=== PATIENT | male | born 1980 ===

== ENCOUNTER 2016-11-18 14:09 | Inpatient (IN) | payer BC ==
[2016-11-18] MEDS ORDERED: Sodium Chloride 0.9% 1,000 ML IV STA ×2 (14:35→17:45)
--- NOTE | 2016-11-18 14:35 | ED PDOC ---
HPI: Abdomen Time Seen by Provider: 11/18/16 14:22 Chief Complaint (Nursing): Abdominal Pain Chief Complaint (Provider): Abdominal Pain History Per: Patient History/Exam Limitations: no limitations Onset/Duration Of Symptoms: Hrs Current Symptoms Are (Timing): Still Present Severity: Severe Location Of Pain/Discomfort: Diffuse, Epigastric Quality Of Discomfort: Cramping, "Pain" Associated Symptoms: Fever, Chills. denies: Nausea, Vomiting Exacerbating Factors: Movement Alleviating Factors: Other (standing) Additional Complaint(s): Patient is a 35 year old male who presents to ED for evaluation of severe abdominal pain that began at 10am today, Patient states pain has worsened since than with posterior right shoulder pain. Notes fever and chills last night which were resolved with Tylenol. Patient denies similar pain in the past. Patient also reporting mild SOB secondary to pain. Denies nausea, vomiting or diarrhea, notes no BM today, last meal was breakfast at 0800. Past Medical History Reviewed: Historical Data, Nursing Documentation, Vital Signs Vital Signs: Last Vital Signs Temp 98.5 F 11/21/16 16:46 Pulse 119 H 11/21/16 17:00 Resp 24 11/21/16 16:46 BP 97/53 L 11/21/16 17:00 Pulse Ox 100 11/21/16 17:00 - Medical History PMH: No Chronic Diseases - Surgical History Surgical History: No Surg Hx - Family History Family History: States: No Known Family Hx - Living Arrangements Living Arrangements: With Family - Social History Current smoker - smoking cessation education provided: No Alcohol: Occasional Drugs: Denies - Allergies Allergies/Adverse Reactions: Allergies Allergy/AdvReac Type Severity Reaction Status Date / Time No Known Allergies Allergy Verified 11/18/16 14:12 Review of Systems ROS Statement: Except As Marked, All Systems Reviewed And Found Negative Constitutional: Positive for: Fever, Chills Gastrointestinal: Positive for: Abdominal Pain. Negative for: Nausea, Vomiting , Diarrhea, Constipation Genitourinary Male: Negative for: Dysuria, Hematuria Musculoskeletal: Positive for: Shoulder Pain, Back Pain Neurological: Negative for: Weakness, Numbness Physical Exam - Reviewed Nursing Documentation Reviewed: Yes Vital Signs Reviewed: Yes - Physical Exam Appears: Positive for: Non-toxic, In Acute Distress (moderate-severe painful distress) Skin: Positive for: Normal Color, Warm Eye Exam: Positive for: Normal appearance, PERRL Neck: Positive for: Normal, Painless ROM Cardiovascular/Chest: Positive for: Regular Rate, Rhythm, Tachycardia. Negative for: Murmur Respiratory: Positive for: Normal Breath Sounds. Negative for: Respiratory Distress Gastrointestinal/Abdominal: Positive for: Bowel Sounds (active ), Tenderness ( tense diffusely ), Guarding. Negative for: Distended Back: Positive for: Normal Inspection. Negative for: L CVA Tenderness, R CVA Tenderness Extremity: Positive for: Normal ROM Neurologic/Psych: Positive for: Alert, Oriented - Laboratory Results Result Diagrams: 11/21/16 04:55 11/21/16 07:30 - ECG O2 Sat by Pulse Oximetry: 98 (RA) Pulse Ox Interpretation: Normal - Critical Care Total Time (In Min): 30 Documented Critical Care: Time excludes all time spent performint seperately billable procedures Medical Decision Making Medical Decision Making: Time: 1430 Initial impression: Abdominal pain, hypoxia Ddx include but not limitied to cholelithiasis, cholecytitis, pancreatitis, enteritis, PUD, sepsis, pneumonia Initial plan: -- CMP -- Lact acid -- LDH -- Lipase -- CBC -- Pt/PTT -- NSF and Morphine -- Blood culture -- U/S Accession No. : [id number] Patient Name / ID : KIERA OBRIEN / [id number] Exam Date : 11/18/2016 14:50:51 ( Approved ) Study Comment : Sex / Age : M / 35Y Creator : Radha Helm MD Dictator : Radha Helm MD Orthopedic Tech : Expert Medical Writer : Radha Helm MD Approver2 : Report Date : 11/18/2016 15:27:11 My Comment : HISTORY: abd pain r/o cholelithiasis COMPARISON: None available TECHNIQUE: Sonographic evaluation of the abdomen. FINDINGS: Examination markedly limited due to patient condition and difficulty with breath hold. LIVER: Measures 14.2 cm in sagittal dimension and appears within normal limits of size , shape, and echotexture. No focal hepatic mass identified. The main portal vein appears patent with normal directional flow. No intrahepatic bile duct dilatation. GALLBLADDER: No gallstones. No gallbladder wall thickening. Negative sonographic Vásquez's sign as assessed by the air sampler. COMMON BILE DUCT: Measures 2 mm. PANCREAS: Not well visualized. RIGHT KIDNEY: Measures 8.8 x 4.0 x 4.8cm. No no obstructing calculus or hydronephrosis identified. LEFT KIDNEY: Measures 9.0 x 5.3 x 4.5cm. No obstructing calculus or hydronephrosis identified. SPLEEN: Measures approximately 11.1 x 5.7 x 4.0 cm. 1.1 cm probable splenule. AORTA: Not well-visualized. IVC: Not well-visualized. OTHER FINDINGS: Right-sided pleural effusion. IMPRESSION: Limited study. Right-sided pleural effusion. 1545p Pleural effusion on US. CXR also demonstrates pleural effusion. On discussion, pt denies any chest pain or coughing. Still in pain despite morphine. CT abd/pelvis ordered. WBC minimally elevated. But lactic acid elevated. Pt will need hospitalization for Pleural effusion and sepsis and intractable abdominal pain, pending ER workup. Accession No. : [id number] Patient Name / ID : KIERA OBRIEN / [id number] Exam Date : 11/18/2016 16:25:48 ( Approved ) Study Comment : Sex / Age : M / 35Y Creator : Tremaine Vasques MD Dictator : Tremaine Vasques MD Orthopedic Tech : Expert Medical Writer : Tremiane Vasques MD Approver2 : Report Date : 11/18/2016 17:23:20 My Comment : PROCEDURE: CT Abdomen and pelvis dated 11/18/2016. HISTORY: Severe epigastric pain. Right pleural effusion. COMPARISON: None. TECHNIQUE: Contiguous axial images of the abdomen and pelvis performed in standard fashion following intravenous injection of approximately 95 cc Omnipaque 300 contrast material. The. No IV contrast given. Coronal and Sagittal reformats generated. Radiation dose: Total exam DLP = 497.13 mGy-cm. FINDINGS: LOWER THORAX: Right lower lobe consolidation which may represent some combination of atelectasis/ infiltrate. Small right-sided effusion present. Minor passive atelectasis seen in the left posterior sulcus. Small hiatal hernia which appears to contain some fluid. Findings could represent some sequela of reflux or dysmotility. LIVER: The liver is upper limits of normal measuring nearly 18 cm in CC dimension. Mild diffuse fatty hepatic infiltration. No obvious hepatic mass or collection. Portal and splenic veins are opacified. GALLBLADDER AND BILE DUCTS: Gallbladder is physiologically distended. No evidence of intraluminal gallbladder calculi PANCREAS: Visualized portions of the pancreas unremarkable. No obvious pancreatic mass collection or calcification. No significant pancreatic ductal dilatation. . SPLEEN: Normal size and attenuation pattern. No evidence of splenic mass collection or calcification. . . ADRENALS: No adrenal lesions. KIDNEYS AND URETERS: Kidneys exhibit symmetric nephrograms. No evidence of nephrolithiasis or hydronephrosis. BLADDER: Urinary bladder is markedly distended. No evidence of intraluminal urinary bladder calculi. REPRODUCTIVE: Prostate gland measures approximately 4.4 cm in transverse dimension. Prostatic calcifications are present. APPENDIX: What is felt to represent a normal appendix best seen on axial images numbers 130- 144. No periappendiceal inflammatory changes. BOWEL: Evaluation of the bowel is limited due to the lack of oral contrast material. The stomach is relatively under distended which presumably accounts for thick- walled appearance. The possibility of a gastritis not excluded. Clinical correlation recommended. . There is the distended loop of proximal small bowel left upper quadrant of the abdomen which is nonspecific. This could represent a moderate localized ileus. Large amount of stool is seen throughout the colon particularly the cecum consistent with fecal retention/constipation. PERITONEUM: No evidence of free intraperitoneal air. No free or loculated fluid collections. LYMPH NODES: Unremarkable. No enlarged lymph nodes. VASCULATURE: Unremarkable. No aortic aneurysm. BONES: The osseous structures appear grossly intact. OTHER FINDINGS: None. IMPRESSION: Right lower lobe consolidation which may represent atelectasis/infiltrate. There is a small right-sided effusion as well. Suspect small bowel ileus left upper quadrant of the abdomen. . Findings consistent with constipation. Stomach is incompletely distended which presumably accounts for thick-walled appearance. Rule out gastritis. Mild fatty hepatic infiltration with borderline hepatomegaly. CT redemonstrates effusion and also consolidation. CT chest ordered. IV antibiotics ordered for both GI and CAP coverage. Pt still in pain with hypoxia. +Bandemia [address] Combs, CT chest with bilateral pneumonia. No signs of infarction of lung (discussed possibility of PE). TROY [facility]. TROY Amado Hospitalist for ICU. Scribe Attestation: Documented by Ashley Duff acting as a scribe for Rut Canada MD MD Scribe Attestation: All medical record entries made by the Scribe were at my direction and personally dictated by me. I have reviewed the chart and agree that the record accurately reflects my personal performance of the history, physical exam, medical decision making, and the department course for this patient. I have also personally directed, reviewed, and agree with the discharge instructions and disposition. Disposition - Clinical Impression Clinical Impression: Abdominal pain, Pleural effusion, Sepsis, Bilateral pneumonia Counseled Patient/Family Regarding: Studies Performed, Diagnosis - Disposition Disposition Time: 16:00 Condition: CRITICAL - Pt Status Changed To: Hospital Disposition Of: Inpatient - Admit Certification Admit to Inpatient:: After my assessment, the patient will require hospitalization for at least two midnights. This is because of the severity of symptoms shown, intensity of services needed, and/or the medical risk in this patient being treated as an outpatient. - POA Present On Arrival: None
--- NOTE | 2016-11-18 15:28 | US ---
HISTORY: abd pain r/o cholelithiasis COMPARISON: None available TECHNIQUE: Sonographic evaluation of the abdomen. FINDINGS: Examination markedly limited due to patient condition and difficulty with breath hold. LIVER: Measures 14.2 cm in sagittal dimension and appears within normal limits of size, shape, and echotexture. No focal hepatic mass identified. The main portal vein appears patent with normal directional flow. No intrahepatic bile duct dilatation. GALLBLADDER: No gallstones. No gallbladder wall thickening. Negative sonographic Vásquez's sign as assessed by the chucking and boring machine operator. COMMON BILE DUCT: Measures 2 mm. PANCREAS: Not well visualized. RIGHT KIDNEY: Measures 8.8 x 4.0 x 4.8cm. No no obstructing calculus or hydronephrosis identified. LEFT KIDNEY: Measures 9.0 x 5.3 x 4.5cm. No obstructing calculus or hydronephrosis identified. SPLEEN: Measures approximately 11.1 x 5.7 x 4.0 cm. 1.1 cm probable splenule. AORTA: Not well-visualized. IVC: Not well-visualized. OTHER FINDINGS: Right-sided pleural effusion. IMPRESSION: Limited study. Right-sided pleural effusion.
[2016-11-18 15:48] LABS: ALB/GLOB RATIO 1.2 (1.0-2.1); ALKALINE PHOSPHATASE 57 U/L (38-126); ALT/SGPT 26 U/L (21-72); AST/SGOT 34 U/L (17-59); BILIRUBIN,TOTAL 0.7 mg/dl (0.2-1.3); BLOOD UREA NITROGEN 20 mg/dl (9-20); CALCIUM 8.6 mg/dL (8.4-10.2); CARBON DIOXIDE 24 mmol/L (22-30); CHLORIDE 99 mmol/L (98-107); GFR AFRICAN-AMERICAN > 60; GLUCOSE,RANDOM 139 mg/dL (75-110); LIPASE 19 U/L (23-300); POTASSIUM 3.9 MMOL/L (3.6-5.0); SODIUM 141 mmol/l (132-148); TOTAL PROTEIN 7.8 G/DL (6.3-8.2)
[2016-11-18 15:52] LABS: PARTIAL THROMBOPLASTIN TIME 34.3 SECONDS (23.3-32.5)
[2016-11-18 15:59] LABS: BASO % 0.1 % (0.0-2.0); LYMPH # 0.3 K/uL (1.0-4.3); LYMPH % 2.3 % (20.0-40.0); MEAN CELL VOLUME 93.3 fl (80.0-94.0); MEAN CORPUSCULAR HEMOGLOBIN 31.4 pg (27.0-31.0); MEAN CORPUSCULAR HGB CONC 33.7 g/dL (33.0-37.0); MEAN PLATELET VOLUME 9.4 fl (7.2-11.7); MONO # 0.7 K/uL (0.0-0.8); MONO % 5.8 % (0.0-10.0); NEUT # 10.3 K/uL (1.8-7.0); NEUT % 91.8 % (50.0-75.0); NRBC % 0.1 % (0.0-0.0); PLATELET COUNT 169 K/uL (130-400); RED CELL DISTRIBUTION WIDTH 13.3 % (11.5-14.5); WHITE BLOOD COUNT 11.2 K/uL (4.8-10.8)
[2016-11-18] MEDS ORDERED: Iohexol 300 100 ML IJ ONE (16:14)
[2016-11-18] MEDS ORDERED: Sodium Chloride 0.9% 50 ML IV ONE (16:14)
[2016-11-18] MEDS ORDERED: Piperacillin/Tazobact 3.375 GM in Sodium Chloride 0.9% 100 ML IV STA (16:20)
--- NOTE | 2016-11-18 16:25 | RAD ---
HISTORY: RIGHT pleural effusion COMPARISON: No prior study available for comparison TECHNIQUE: Chest PA and lateral FINDINGS: LUNGS: Right basilar opacification likely representing some combination of atelectasis and or infiltrate with moderate-sized effusion. Questionable minimal left basilar atelectasis PLEURA: No significant pleural effusion identified. No pneumothorax apparent. CARDIOVASCULAR: Normal. OSSEOUS STRUCTURES: No significant abnormalities. VISUALIZED UPPER ABDOMEN: Normal. OTHER FINDINGS: None. IMPRESSION: Right basilar opacity likely representing some combination of atelectasis and/or infiltrate with effusion. . Questionable minimal left basilar atelectasis
--- NOTE | 2016-11-18 17:25 | CT ---
PROCEDURE: CT Abdomen and pelvis dated 11/18/2016. HISTORY: Severe epigastric pain. Right pleural effusion. COMPARISON: None. TECHNIQUE: Contiguous axial images of the abdomen and pelvis performed in standard fashion following intravenous injection of approximately 95 cc Omnipaque 300 contrast material. The. No IV contrast given. Coronal and Sagittal reformats generated. Radiation dose: Total exam DLP = 497.13 mGy-cm. FINDINGS: LOWER THORAX: Right lower lobe consolidation which may represent some combination of atelectasis/ infiltrate. Small right-sided effusion present. Minor passive atelectasis seen in the left posterior sulcus. Small hiatal hernia which appears to contain some fluid. Findings could represent some sequela of reflux or dysmotility. LIVER: The liver is upper limits of normal measuring nearly 18 cm in CC dimension. Mild diffuse fatty hepatic infiltration. No obvious hepatic mass or collection. Portal and splenic veins are opacified. GALLBLADDER AND BILE DUCTS: Gallbladder is physiologically distended. No evidence of intraluminal gallbladder calculi PANCREAS: Visualized portions of the pancreas unremarkable. No obvious pancreatic mass collection or calcification. No significant pancreatic ductal dilatation. . SPLEEN: Normal size and attenuation pattern. No evidence of splenic mass collection or calcification. . . ADRENALS: No adrenal lesions. KIDNEYS AND URETERS: Kidneys exhibit symmetric nephrograms. No evidence of nephrolithiasis or hydronephrosis. BLADDER: Urinary bladder is markedly distended. No evidence of intraluminal urinary bladder calculi. REPRODUCTIVE: Prostate gland measures approximately 4.4 cm in transverse dimension. Prostatic calcifications are present. APPENDIX: What is felt to represent a normal appendix best seen on axial images numbers 130- 144. No periappendiceal inflammatory changes. BOWEL: Evaluation of the bowel is limited due to the lack of oral contrast material. The stomach is relatively under distended which presumably accounts for thick-walled appearance. The possibility of a gastritis not excluded. Clinical correlation recommended. . There is the distended loop of proximal small bowel left upper quadrant of the abdomen which is nonspecific. This could represent a moderate localized ileus. Large amount of stool is seen throughout the colon particularly the cecum consistent with fecal retention/constipation. PERITONEUM: No evidence of free intraperitoneal air. No free or loculated fluid collections. LYMPH NODES: Unremarkable. No enlarged lymph nodes. VASCULATURE: Unremarkable. No aortic aneurysm. BONES: The osseous structures appear grossly intact. OTHER FINDINGS: None. IMPRESSION: Right lower lobe consolidation which may represent atelectasis/infiltrate. There is a small right-sided effusion as well. Suspect small bowel ileus left upper quadrant of the abdomen. . Findings consistent with constipation. Stomach is incompletely distended which presumably accounts for thick-walled appearance. Rule out gastritis. Mild fatty hepatic infiltration with borderline hepatomegaly.
[2016-11-18] MEDS ORDERED: HYDROmorphone 0.5 mg/0.5 ml ISec IVP STA (17:48)
[2016-11-18] MEDS ORDERED: Piperacillin/Tazobact 3.375 gm Inj IVPB ONE (18:09)
[2016-11-18 18:24] LABS: ABG ALLEN TEST YES; ARTERIAL BLOOD GAS HCO3 22.8 mmol/L (21-28); ARTERIAL BLOOD GAS PH 7.31 (7.35-7.45); ARTERIAL BLOOD GAS PO2 50 mm/Hg (80-100)
[2016-11-18 18:56] LABS: TOTAL CELLS COUNTED 100
[2016-11-18 18:58] LABS: EOSINOPHIL 1 % (0-7); NEUTROPHIL 43 % (42-75)
[2016-11-18 19:00] LABS: PLATELET CLUMPS PRESENT
[2016-11-18 19:09] LABS: METAMYELOCYTE 4 % (0-0)
--- NOTE | 2016-11-18 20:25 | CP.PCM.CON ---
History of Present Illness - History of Present Illness History of Present Illness: Attending: Rohan Hoffman MD Reason For Consult: Critical care Management Chief Complaint: Abdominal Pain HPI: 35 years old male with no significant past medical hx comes with a one day hx of sudden unset of sharp pain across the middle of the abdomen while he was driving. This was continuous, increasing in intensity with respiration and exertion,associated with SOB. None radiating and not associated with nausea, vomits, Coughing, diarrhea, constipation, urinary symptoms. He referred cold like symptoms with nasal congestion, coughing, fever and chills, on the night prior to this admission. 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 absent: Anorexia, Fever, Headache, Malaise, Weakness - EENT Eyes: absent: Blind Spots, Floaters, Photophobia, Requires Corrective Lenses, Sees Flashes Ears: absent: Decreased Hearing, Ear Discharge, Ear Pain, Tinnitus Nose/Mouth/Throat: absent: Epistaxis, Nasal Congestion, Nasal Discharge, Sore Throat - Cardiovascular Cardiovascular: Dyspnea, Orthopnea. absent: Chest Pain, Palpitations, Pedal Edema - Respiratory Respiratory: absent: Cough, Dyspnea, Wheezing - Gastrointestinal Gastrointestinal: absent: Constipation, Diarrhea, Nausea, Vomiting - Genitourinary Genitourinary: absent: Dysuria, Flank Pain, Hematuria, Urinary Frequency - Musculoskeletal Musculoskeletal: absent: Arthralgias, Back Pain, Joint Swelling, Muscle Weakness , Myalgias, Neck Pain - Integumentary Integumentary: absent: Pruritus, Rash, Skin Ulcer, Sores, Striae, Swelling - Neurological Neurological: absent: Confusion, Dizziness, Headaches, Memory Loss, Weakness - Psychiatric Psychiatric: absent: Anxiety, Depression, Memory Loss, Panic Attacks - Endocrine Endocrine: absent: Palpitations, Polydipsia, Polyphagia, Polyuria - Hematologic/Lymphatic Hematologic: absent: Easy Bleeding, Easy Bruising Past Patient History - Past Medical History & Family History Past Medical History?: No - Past Social History Smoking Status: Never Smoked Chewing Tobacco Use: No Cigar Use: No Alcohol: Social Drugs: Denies Home Situation {Lives}: With Family - CARDIAC Hx Cardiac Disorders: No - PULMONARY Hx Respiratory Disorders: No - NEUROLOGICAL Hx Neurological Disorder: No - HEENT Hx HEENT Problems: No - RENAL Hx Chronic Kidney Disease: No - ENDOCRINE/METABOLIC Hx Endocrine Disorders: No - HEMATOLOGICAL/ONCOLOGICAL Hx Blood Disorders: No - INTEGUMENTARY Hx Dermatological Problems: No - MUSCULOSKELETAL/RHEUMATOLOGICAL Hx Musculoskeletal Disorders: No - GASTROINTESTINAL Hx Gastrointestinal Disorders: No - GENITOURINARY/GYNECOLOGICAL Hx Genitourinary Disorders: No - PSYCHIATRIC Hx Psychophysiologic Disorder: No Hx Substance Use: No - SURGICAL HISTORY Hx Surgeries: No - ANESTHESIA Hx Anesthesia: No Meds Allergies/Adverse Reactions: Allergies Allergy/AdvReac Type Severity Reaction Status Date / Time No Known Allergies Allergy Verified 11/18/16 14:12 Physical Exam - Constitutional Appears: No Acute Distress - Head Exam Head Exam: ATRAUMATIC, NORMAL INSPECTION, NORMOCEPHALIC - Eye Exam Eye Exam: EOMI, Normal appearance Pupil Exam: NORMAL ACCOMODATION, PERRL - ENT Exam ENT Exam: Mucous Membranes Moist, Normal Exam, Normal External Ear Exam, Normal Oropharynx - Neck Exam Neck exam: Positive for: Full Rom, Normal Inspection. Negative for: Lymphadenopathy, Tenderness - Respiratory Exam Respiratory Exam: absent: Rales, Rhonchi, Wheezes Additional comments: Decreased breath sounds at the right lung distal half. - Cardiovascular Exam Cardiovascular Exam: REGULAR RHYTHM, RRR, +S1, +S2. absent: Gallop, JVD - GI/Abdominal Exam Additional comments: Guarding, no rebound tenderness, Tender at the periumbilical region, decreased bowel sounds. - Rectal Exam Rectal Exam: Deferred - Extremities Exam Extremities exam: Positive for: full ROM, normal inspection. Negative for: calf tenderness, pedal edema, pedal pulses present - Back Exam Back exam: NORMAL INSPECTION. absent: CVA tenderness (L), CVA tenderness (R) - Neurological Exam Neurological exam: Alert, CN II-XII Intact, Oriented x3, Reflexes Normal - Psychiatric Exam Psychiatric exam: Normal Affect, Normal Mood - Skin Skin Exam: Dry, Intact, Normal Color, Warm Results - Vital Signs Recent Vital Signs: Last Vital Signs Temp 100.6 F H 11/18/16 20:13 Pulse 123 H 11/18/16 14:13 Resp 20 11/18/16 14:13 BP 119/84 11/18/16 14:13 Pulse Ox 98 03/24/17 14:38 - Labs Result Diagrams: 11/18/16 15:25 11/18/16 15:25 Labs: Laboratory Results - last 24 hr 11/18/16 11/18/16 18:50 19:00 Troponin I < 0.0120 NT-Pro-B Natriuret Pep 709 H HIV-1 Ab Rapid Screen Non reactive - EKG Data EKG comments: Sinus Tachycardia 128/min - Imaging and Cardiology US - abdomen Status: Report reviewed by me Additional comment: Limited study. Right side pleural effusion Chest x-ray Status: Image reviewed by me, Report reviewed by me Additional comment: Right basilar opacity, likely represent some combination of Atelectasis and / or Infiltrate with effusion CT abdomen with IV contrast Status: Report reviewed by me Additional comment: Right lower lobe consolidation which may represent Atelectasis vs infiltrate. Small right sided effusion Small bowel Ileus left upper quadrant of abdomen. Findings consistent with constipation Sign of Gastritis. Mild fatty hepatic infiltrate CT scan - chest Status: Report reviewed by me Additional comment: FINDINGS: Lungs: Infiltrate is identified in both lungs with diffuse consolidation in the right middle lobe and right lower lobe. There is a moderate to large right pleural effusion. Heart: Unremarkable. No cardiomegaly. No significant pericardial effusion. Bones/joints: Unremarkable. No acute fracture. No dislocation. Soft tissues: Unremarkable. Vasculature: Unremarkable. No thoracic aortic aneurysm. Lymph nodes: Presumed right hilar lymphadenopathy. Mild mediastinal lymph node enlargement.. IMPRESSION: Infiltrate is identified in both lungs with diffuse consolidation in the right middle lobe and right lower lobe. There is a moderate to large right pleural effusion. Assessment & Plan - Assessment and Plan (Free Text) Assessment: #. Bibasal pneumonia #. Right Pleural Effusion #. Hypoxemia #. Ileus #. Constipation #.Fatty Infiltrate of the liver Plan: 35 years old male with no significant past medical hx comes with a one day hx of sudden unset of sharp pain across the middle of the abdomen while he was driving. This was continuous, increasing in intensity with respiration and exertion,associated with SOB. None radiating and not associated with nausea, vomits, Coughing, diarrhea, constipation, urinary symptoms. He referred cold like symptoms with nasal congestion, coughing, fever and chills, on the night prior to this admission. #. Community Acquired Bibasal pneumonia Probably aspiration - Consult Dr Phelps pulmonary - Zosyn 1gm IVPB daily/ Azithromycin 1 gm IVPB daily/ Flagyl #. Right Pleural Effusion. Most probably para Pneumonic - Pulmonary on consult - Antibiotics started #. Hypoxemia secondary to the Pneumonia. No Pulmonary Embolus - NRBM oxygen - Follow ABG #. Ileus with constipation - NPO -IV Fluids - Follow Flat plate of abdomen #.Fatty Infiltrate of the live - Dump Worker on stopping Alcohol drinking #. Stress Ulcer Prophylaxis with IV Pantoprazole #. DVT Prophylaxis with SCD #. Code Status: Full - Date & Time Date: 11/18/16 Time: 20:25
[2016-11-18] MEDS: metroNIDAZOLE 500mg/100ml NS 100 ML IVPB SCH (23:37)
[2016-11-18] MEDS: Sodium Chloride 0.9% 1,000 ML IV SCH (23:46)
[2016-11-18] MEDS: HYDROmorphone 0.5 mg/0.5 ml ISec IVP PRN (23:58)
[2016-11-19] MEDS: Piperacillin/Tazobact 3.375 GM in Sodium Chloride 0.9% 100 ML IVPB SCH ×4 (03:04→23:00)
[2016-11-19] MEDS: HYDROmorphone 0.5 mg/0.5 ml ISec IVP PRN ×2 (03:47→10:28)
[2016-11-19] MEDS ORDERED: Influenza Vaccine(5yr & older) 0.5 ML/45 MCG IM ONE (06:00)
[2016-11-19] MEDS: Sodium Chloride 0.9% 1,000 ML IV SCH ×3 (07:30→21:35)
[2016-11-19] MEDS: metroNIDAZOLE 500mg/100ml NS 100 ML IVPB SCH ×2 (08:25→16:18)
[2016-11-19] MEDS: Azithromycin 500 MG in Sodium Chloride 0.9% 250 ML IVPB SCH (08:38)
--- NOTE | 2016-11-19 08:46 | CP.CCUPN ---
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 ROS: as above, no other obtainable pertinent negs or positives on 10 system review. PMFSH: all nursing and historical notes reviewed, no new pertinent data relevant to current problems. No other distress noted: EXAM- HEENT: no icterus, pupils equal and reactive NECK: no visible JVD, supple, carotids equal upstroke bilat/no bruits CHEST: decreased BS bases, no wheezes audible HEART: regular, distant, S1S2, no murmur audible, no rubs. ABD: soft, no increased distention, no focal tenderness, no HSM. BS hypoactive , EXT: no increase in leg edema, no peripheral/ digital cyanosis, no calf tenderness or palpable cords, distal pulses intact and symmetrical NEURO: no gross focal motor deficits SKIN: no rashes LABS: 7.46/49/50 Yesterday's- WBC= 11.2 HGB= 14.8 PLTs= 169K Na= 141 K= 3.9 HCO3= 24 BUN/Cr= 20/1.0 BS= 139 Lactate= 3.4 CXR / CT chest/ CTAP films reviewed: bilateral pneumonitis with large R effusion, possible Small bowel ileus. Assessment: 1. Acute Hypoxemic Resp failure 2' bilat Pneumonia 2. Ileus 3. Chronic Alcoholism PLAN: 1. Trial on HFNC / BiPAP as tolerated. Sputum cx, may need diagnostic and therapeutic thoracentesis. 2. Empiric abx coverage noted, consider adding Vanco to current regimen with Zosyn Zithro. 3. ECHO 4. Check urine Tox Screen 5. Repeat serial Lactates and check Procalcitonin level. 6. Watch for ETOH withdrawal symptoms. Add Thiamine - Folate supplements.
--- NOTE | 2016-11-19 09:23 | CT ---
PROCEDURE: CT Chest without contrast HISTORY: RIGHT pleural effustion COMPARISON: None. TECHNIQUE: Contiguous axial images were obtained through the chest without intravenous contrast enhancement. Sagittal and coronal reconstructions were performed. Radiation dose (DLP): mGy-cm. FINDINGS: LUNGS: Extensive consolidation in the right lower lobe and right middle lobe. Extensive patchy infiltrate patchy consolidation in the left lower lobe. MEDIASTINUM: Unremarkable thoracic aorta. No aneurysm. Normal sized heart. Main pulmonary artery unremarkable. No vascular congestion. No lymphadenopathy. PLEURA: Moderate to large right pleural effusion. BONES: No fracture. No destructive lesion. UPPER ABDOMEN: Grossly unremarkable. OTHER FINDINGS: None. IMPRESSION: Extensive bibasilar infiltrate with consolidation right middle lobe and right lower lobe as well as a moderate to large right pleural effusion.
--- NOTE | 2016-11-19 10:28 | HP ---
CHIEF COMPLAINT: Abdominal pain, chest pain, shoulder pain. HISTORY OF PRESENT ILLNESS: This is a 35-year-old male without significant past medical history, on no medication at home, who was having abdominal pain for a few days, started almost suddenly while he was in the car and started getting worse. The patient also started having shortness of breath and d ecreased exercise tolerance. So patient was brought to Emergency Room and was admitted for further m anagement. REVIEW OF SYSTEMS: Positive for shortness of breath, abdominal pain, right shoulder pain. Review of systems otherwise is negative for headache, dizziness, syncope, loss of consciousness, nausea, vomit ing, diarrhea, constipation, any new joint or extremity pain. Review of systems also is positive for generalized malaise, weakness, fatigue, and fever feeling. Review of systems of all other organ sys tems is unremarkable. PAST MEDICAL HISTORY: Unremarkable. PAST SURGICAL HISTORY: Unremarkable. PERSONAL HISTORY: The patient has social alcohol drinking habits, no smoking or illicit drug abuse. FAMILY HISTORY: Noncontributory. MEDICATIONS: The patient is not taking any medications. ALLERGIES: The patient is not allergic to any medications. PHYSICAL EXAMINATION: GENERAL: Well-built, well-nourished 35-year-old male in no acute distress. VITAL SIGNS: Temperature was up to 100.2, pulse 130, respirations 20, blood pressure 122/71. HEENT: Pupils reacting to light. No JVD, no thyromegaly, no lymphadenopathy, no nystagmus. Normoce phalic, atraumatic skull. HEART: S1, S2 normal, regular. Tachycardic. LUNGS: The patient has bilateral basal crepitations, no rhonchi. Fair air entry in other areas. ABDOMEN: Soft, nontender, no organomegaly, no fluid. Bowel sounds are plus. No sign of acute abdom en. No guarding, no rigidity, no rebound. EXTREMITIES: No edema, no calf swelling, no tenderness, no acute ischemia. CENTRAL NERVOUS SYSTEM: Essentially unchanged. DIAGNOSTIC DATA: Available diagnostic data reviewed. WBC 11.3, hemoglobin 14.2, hematocrit 44, plat elet 169. PT 13.4, PTT 34.3, D-dimer elevated at 0.85. ABG showed pH of 7.31, pCO2 of 49, pO2 of 50 , saturation is 88%. Sodium 141, potassium 3.9, chloride 99, bicarb 24, BUN 20, creatinine 1.0. Lac tic acid level is 3.4. SMA-12 is unremarkable. HIV test is negative. CAT scan of chest is consiste nt with bilateral pneumonia. Abdominal CAT scan does not reveal any acute pathology. Abdominal ultr asound is unremarkable. ADMITTING IMPRESSION: Septic syndrome secondary to bilateral pneumonia. PLAN: As ordered. Case and plan discussed with patient and the patient's family at bedside. Rohan Hoffman MD cc: [phone] TT: 11/19/2016 10:27:14 tn
--- NOTE | 2016-11-19 10:50 | CARD ---
APPROVED REPORT EKG Measurement Heart [id number] <Conclusion> Sinus tachycardia ST elevation, consider early repolarization, Abnormal ECG
[2016-11-19] MEDS ORDERED: Sodium Chloride 3% for Inhalation 4 ML VIAL.NEB IH PRN (10:54)
--- NOTE | 2016-11-19 11:38 | CON ---
DATE: 11/19/2016 The patient is a 35-year-old male who was admitted to the intensive care unit because of abdominal pa in and a chest x-ray that shows bilateral pneumonia with consolidation, right lung. He indicates estefany t he had been sick for 2 days prior to presentation; had some chills and fever associated with abdomi nal pains, was sent to the urgent center by the who thought he was too sick to be home with the kids and he showed up in the Emergency Room after he was referred from the urgent center. He denies any other medical problems and denies cough or chills 24 hours prior to presentation. Cough was prod uctive of yellowish sputum, had no hemoptysis. No chest pains. There is mild shortness of breath. PAST MEDICAL HISTORY: Noncontributory. 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 REVIEW OF SYSTEMS: Essentially unremarkable. PHYSICAL EXAMINATION: GENERAL: The patient is alert, oriented, appears to be in some discomfort from abdominal pain and so me shortness of breath. VITAL SIGNS: Blood pressure 116/68, pulse of 130, respiratory rate 24 per minute, O2 sat 100% on hig h flow oxygen. SKIN: Shows fair turgor. HEENT: Pupils equal and react to light and accommodation. Mouth shows fair hygiene. NECK: JVP flat. LUNGS: Bilateral coarse rales, dullness at the right base. HEART: Tachycardic. ABDOMEN: Soft with diffuse tenderness, no organomegaly appreciated. EXTREMITIES: Show no edema or cyanosis. CENTRAL NERVOUS SYSTEM: Grossly intact. LABORATORY DATA: Remarkable for chest x-ray that shows bilateral pneumonia, right lung worse the lef t with a consolidation in the right base and a small amount of pleural effusion. This is also confir med on a CAT scan. WBC 11.2, hemoglobin 14.8, platelet count of 169,000, bands of 33, neutrophils 91 , lymphocytes 2.3. Sodium 141, potassium 3.9, BUN of 20, creatinine 1.0. Lactic acid 3.4. LDH 418. IMPRESSION: Bilateral pneumonia, right more than left, small amount of pleural effusion with consoli dation. Abdominal pain, probably could be due to pneumonia with constipation, but gastroenterology e valuation will be adequate to evaluate this. Bandemia, probably secondary to pneumonia. PLAN: Suggest antibiotic therapy. Sputum cultures, blood cultures, legionella, mycoplasma titers. Would also advise infectious disease evaluation to adequately adjust antibiotic therapy. Case discus sed at length with patient and his . Prognosis is extremely guarded, but hopefully, he should im prove with therapy. If chest x-ray continues to show what appears to be a moderate amount of pleural effusion or the patient's clinical condition does not begin to improve, would advise CT-guided thora centesis. Moris Phelps MD cc: [phone] TT: 11/19/2016 11:37:46 Confirmation # [id number] Dictation # [id number] tn
--- NOTE | 2016-11-19 18:17 | CP.PCM.CON ---
History of Present Illness - History of Present Illness History of Present Illness: Asked for a GI consultation on this patient CC: abdominal pain, dyspnea HPI: This is a 35 year old male with no significant past medical history who presents to hospital with complaint of acute onset abdominal pain and shortness of breath. The patient states that he has been feeling unwell for the past several days characterized by generalized malaise, fatigue, weakness and shortness of breath. He also reports fever (although did not take at home). He states that yesterday he developed epigastric abdominal pain while driving in the car. The pain is described as sharp, epigastric and non radiating. No associated nausea or vomiting. No change in bowel habits. He denies any prior complaint of abdominal pain. He took 2-3 tabs of ibuprofen for fever. He denies any chronic NSAID usage. He states that his pain is a little improved today. PMHx/PSHx: as above Medications: no home meds Allergies: NDKA ROS: as per HPI FH: denies any history of GI disorder/malignancy SH: drinks socially, no tobacco or illicit drug use Review of Systems - Constitutional Constitutional: Chills, Fever - Cardiovascular Cardiovascular: Dyspnea. absent: Chest Pain - Respiratory Respiratory: Dyspnea - Gastrointestinal Gastrointestinal: As Per HPI - Genitourinary Genitourinary: absent: Difficulty Urinating, Dysuria - Musculoskeletal Musculoskeletal: absent: Atrophy, Myalgias - Integumentary Integumentary: absent: Jaundice - Neurological Neurological: absent: Headaches - Psychiatric Psychiatric: absent: Anxiety - Endocrine Endocrine: absent: Palpitations Past Patient History - Past Medical History & Family History Past Medical History?: No - Past Social History Smoking Status: Never Smoked Chewing Tobacco Use: No Cigar Use: No Alcohol: Social Drugs: Denies Home Situation {Lives}: With Family - CARDIAC Hx Cardiac Disorders: No - PULMONARY Hx Respiratory Disorders: No - NEUROLOGICAL Hx Neurological Disorder: No - HEENT Hx HEENT Problems: No - RENAL Hx Chronic Kidney Disease: No - ENDOCRINE/METABOLIC Hx Endocrine Disorders: No - HEMATOLOGICAL/ONCOLOGICAL Hx Blood Disorders: No - INTEGUMENTARY Hx Dermatological Problems: No - MUSCULOSKELETAL/RHEUMATOLOGICAL Hx Musculoskeletal Disorders: No - GASTROINTESTINAL Hx Gastrointestinal Disorders: No - GENITOURINARY/GYNECOLOGICAL Hx Genitourinary Disorders: No - PSYCHIATRIC Hx Psychophysiologic Disorder: No Hx Substance Use: No - SURGICAL HISTORY Hx Surgeries: No - ANESTHESIA Hx Anesthesia: No Meds Allergies/Adverse Reactions: Allergies Allergy/AdvReac Type Severity Reaction Status Date / Time No Known Allergies Allergy Verified 11/18/16 14:12 - Medications Medications: Current Medications Acetaminophen (Tylenol 325mg Tab) 650 mg PO Q4 PRN PRN Reason: Fever >100.4 F Acetaminophen (Tylenol 325mg Tab) 650 mg PO Q4 PRN PRN Reason: Pain, Mild (1-3) Folic Acid (Folic Acid) 1 mg PO DAILY [facility] Last Admin: 11/19/16 09:36 Dose: 1 mg Hydromorphone HCl (Dilaudid) 1 mg IVP Q4H PRN PRN Reason: Pain, severe (8-10) Last Admin: 11/19/16 17:55 Dose: 1 mg Hydromorphone HCl (Dilaudid) 0.5 mg IVP Q4H PRN PRN Reason: Pain, moderate (4-7) Last Admin: 11/19/16 10:28 Dose: 0.5 mg Piperacillin Sod/Tazobactam (Sod 3.375 gm/ Sodium Chloride) 100 mls @ 100 mls/ hr IVPB Q6 [facility] Last Admin: 11/19/16 15:27 Dose: 100 mls/hr Azithromycin 500 mg/ Sodium (Chloride) 250 mls @ 250 mls/hr IVPB DAILY [facility] Last Admin: 11/19/16 08:38 Dose: 250 mls/hr Metronidazole (Flagyl 500mg/100ml Ns) 100 mls @ 100 mls/hr IVPB Q8 [facility] Last Admin: 11/19/16 16:18 Dose: 100 mls/hr Sodium Chloride (Sodium Chloride 0.9%) 1,000 mls @ 175 mls/hr IV .Q5H43M [facility] Last Admin: 11/19/16 10:03 Dose: 175 mls/hr Pantoprazole Sodium (Protonix Inj) 40 mg IVP DAILY [facility] Last Admin: 11/19/16 08:26 Dose: 40 mg Thiamine HCl (Vitamin B1 Tab) 100 mg PO DAILY [facility] Last Admin: 11/19/16 09:36 Dose: 100 mg Physical Exam - Constitutional Appears: No Acute Distress - Eye Exam Eye Exam: absent: Scleral icterus - Respiratory Exam Additional comments: decreased bilateral breath sounds - Cardiovascular Exam Cardiovascular Exam: +S1, +S2 - GI/Abdominal Exam Additional comments: abdomen soft, mild ttp in epigastrium without rebound or guarding, bowel sounds present, no palpable mass - Extremities Exam Extremities exam: Negative for: pedal edema - Back Exam Back exam: absent: CVA tenderness (L), CVA tenderness (R) - Neurological Exam Neurological exam: Alert, Oriented x3 - Skin Skin Exam: Dry Results - Vital Signs Recent Vital Signs: Last Vital Signs Temp 98.3 F 11/19/16 16:00 Pulse 127 H 11/19/16 17:59 Resp 28 H 11/19/16 17:59 BP 137/86 11/19/16 17:59 Pulse Ox 93 L 11/19/16 17:59 - Labs Result Diagrams: 11/18/16 15:25 11/18/16 15:25 Labs: Laboratory Results - last 24 hr 11/18/16 11/18/16 11/18/16 18:50 19:00 21:00 D-Dimer, Quantitative 0.85 H Troponin I < 0.0120 NT-Pro-B Natriuret Pep 709 H Urine Opiates Screen Urine Methadone Screen Ur Barbiturates Screen Ur Phencyclidine Scrn Ur Amphetamines Screen U Benzodiazepines Scrn U Oth Cocaine Metabols U Cannabinoids Screen HIV-1 Ab Rapid Screen Non reactive Influenza Typ A,B (EIA) 11/19/16 12:00 D-Dimer, Quantitative Troponin I NT-Pro-B Natriuret Pep Urine Opiates Screen Positive H Urine Methadone Screen Negative Ur Barbiturates Screen Negative Ur Phencyclidine Scrn Negative Ur Amphetamines Screen Negative U Benzodiazepines Scrn Negative U Oth Cocaine Metabols Negative U Cannabinoids Screen Negative HIV-1 Ab Rapid Screen Influenza Typ A,B (EIA) Negative for flu a/b Assessment & Plan - Assessment and Plan (Free Text) Assessment: This is a 35 year old male with no significant past medical history who is admitted with bilateral PNA/pleural effusion. He has abdominal pain. CT scan with stool, possible ileus, gastric wall thickening. Abdominal ultrasound without cholelithiasis. Plan: Continue supportive care per ICU Continue antibiotic therapy for pneumonia Serial abdominal examination PPI therapy Antiemetic therapy if needed Follow up cultures Repeat lactate Will continue to follow and make recommendations depending on patient's clinical course
[2016-11-20] MEDS: metroNIDAZOLE 500mg/100ml NS 100 ML IVPB SCH ×2 (01:11→08:16)
[2016-11-20] MEDS: Sodium Chloride 0.9% 1,000 ML IV SCH ×3 (04:58→22:08)
[2016-11-20] MEDS: Piperacillin/Tazobact 3.375 GM in Sodium Chloride 0.9% 100 ML IVPB SCH ×4 (04:59→22:08)
[2016-11-20 07:10] LABS: HEMATOCRIT 41.2 % (35.0-51.0); MEAN CELL VOLUME 94.4 fl (80.0-94.0); MEAN CORPUSCULAR HEMOGLOBIN 30.7 pg (27.0-31.0); MEAN CORPUSCULAR HGB CONC 32.5 g/dL (33.0-37.0); RED CELL DISTRIBUTION WIDTH 13.2 % (11.5-14.5); WHITE BLOOD COUNT 14.6 K/uL (4.8-10.8)
[2016-11-20 07:17] LABS: ALB/GLOB RATIO 0.9 (1.0-2.1); ALKALINE PHOSPHATASE 58 U/L (38-126); ALT/SGPT 30 U/L (21-72); AST/SGOT 37 U/L (17-59); BILIRUBIN,TOTAL 0.5 mg/dl (0.2-1.3); BLOOD UREA NITROGEN 14 mg/dl (9-20); CALCIUM 8.3 mg/dL (8.4-10.2); CARBON DIOXIDE 26 mmol/L (22-30); CHLORIDE 102 mmol/L (98-107); GFR AFRICAN-AMERICAN > 60; GLUCOSE,RANDOM 101 mg/dL (75-110); POTASSIUM 4.9 MMOL/L (3.6-5.0); SODIUM 139 mmol/l (132-148); TOTAL PROTEIN 6.1 G/DL (6.3-8.2)
--- NOTE | 2016-11-20 07:46 | PN ---
DATE: 11/20/2016 The patient seen and examined. Interim events noted. The patient remains in the intensive care unit . Consults noted, appreciated. The patient is sleepy, arousable. Feels a little better, but still has profound weakness. No chest pain, no shortness of breath. PHYSICAL EXAMINATION: GENERAL: The patient is in no acute distress. VITAL SIGNS: Stable, although patient still remains tachycardic with heart rate of 130, blood pressu re is maintained. HEART: S1, S2 normal, regular. LUNGS: Good bilateral air entry. Reveals bilateral crepitations at the bases posteriorly. ABDOMEN: Soft, nontender. No sign of acute abdomen. No guarding, no rigidity, no rebound. EXTREMITIES: No edema, no calf swelling, no tenderness, no acute ischemia. CENTRAL NERVOUS SYSTEM: Essentially unchanged. DIAGNOSTIC DATA: Available reviewed. Telemetry monitoring does not reveal significant arrhythmia __ ___ sinus tachycardia. Overall, patient's general condition is slightly better. PLAN: As ordered. Rohan Hoffman MD cc: [phone] TT: 11/20/2016 07:45:30 Confirmation # [id number] Dictation # [id number]
[2016-11-20 07:50] LABS: PARTIAL THROMBOPLASTIN TIME 43.9 SECONDS (23.3-32.5)
[2016-11-20] MEDS: POLYETHYLENE GLYCOL 3350 17 GM/Dose PACKET PO SCH (08:18)
[2016-11-20] MEDS: Azithromycin 500 MG in Sodium Chloride 0.9% 250 ML IVPB SCH (09:09)
--- NOTE | 2016-11-20 09:48 | CP.CCUPN ---
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 ROS: as above, no other pertinent negs or positives on 10 system review. PMFSH: all nursing and historical notes reviewed, no new pertinent data relevant to current problems. No other distress noted: EXAM- HEENT: no icterus, pupils equal and reactive NECK: no visible JVD, supple, carotids equal upstroke bilat/no bruits CHEST: decreased BS bases, no wheezes audible HEART: regular, distant, S1S2, no murmur audible, no rubs. ABD: soft, no increased distention, no focal tenderness, no HSM. BS hypoactive , EXT: no leg edema, no peripheral/ digital cyanosis, no calf tenderness or palpable cords, distal pulses intact and symmetrical NEURO: no gross focal motor deficits SKIN: no rashes LABS: WBC= 14.6 HGB= 13.4 PLTs= 133K Na= 139 K= 4.9 HCO3= 26 BUN/Cr= 14/0.7 BS= 101 Lactate= 1.9 CXR today is worse with progressive R effusion, increased Left basilar interstitial changes as well. Assessment: 1. Acute Hypoxemic Resp failure 2' bilat Pneumonia 2. Ileus 3. Chronic Alcoholism PLAN: 1. HFNC / BiPAP as tolerated. Sputum cx, may need diagnostic and therapeutic thoracentesis. Watch for need for advancement to MV support. 2. Empiric abx coverage noted, consider adding Vanco to current regimen with Zosyn Zithro. Would adjust dose of Zosyn for severe pneumonia. 3. ECHO. Relative sinus tachycardia persists due to underlying pulm infection , no other obvious etiologic reasons; maintain on IVF hydration. Lactates have normalized. 4. Consider IR eval for diagnostic and therapeutic thoracentesis. So far, blood cultures negative, no other organisms isolated.
--- NOTE | 2016-11-20 10:05 | CP.PCM.PN ---
Subjective - Date & Time of Evaluation Date of Evaluation: 11/20/16 Time of Evaluation: 10:05 - Subjective Subjective: STILL DYSPNEIC ON MIOLD EXERTION STILL COUGHING WITH MINIMAL SPUTUM DENIES CHEST PAINS AT BEDSIDE AND CASE DISCUSSED WITH BOTH Objective - Vital Signs/Intake and Output Vital Signs (last 24 hours): Temp Pulse Resp BP Pulse Ox 99 F 123 H 18 153/48 H 92 L 11/20/16 08:00 11/20/16 09:00 11/20/16 09:00 11/20/16 09:00 11/20/16 09:00 Intake and Output: 11/20/16 11/20/16 06:59 18:59 Intake Total 2750 355 Output Total 425 150 Balance 2325 205 - Medications Medications: Current Medications Acetaminophen (Tylenol 325mg Tab) 650 mg PO Q4 PRN PRN Reason: Fever >100.4 F Acetaminophen (Tylenol 325mg Tab) 650 mg PO Q4 PRN PRN Reason: Pain, Mild (1-3) Folic Acid (Folic Acid) 1 mg PO DAILY [facility] Last Admin: 11/20/16 08:17 Dose: 1 mg Hydromorphone HCl (Dilaudid) 1 mg IVP Q4H PRN PRN Reason: Pain, severe (8-10) Last Admin: 11/20/16 09:06 Dose: 1 mg Hydromorphone HCl (Dilaudid) 0.5 mg IVP Q4H PRN PRN Reason: Pain, moderate (4-7) Last Admin: 11/19/16 10:28 Dose: 0.5 mg Piperacillin Sod/Tazobactam (Sod 3.375 gm/ Sodium Chloride) 100 mls @ 100 mls/ hr IVPB Q6 [facility] Last Admin: 11/20/16 09:12 Dose: 100 mls/hr Azithromycin 500 mg/ Sodium (Chloride) 250 mls @ 250 mls/hr IVPB DAILY [facility] Last Admin: 11/20/16 09:09 Dose: 250 mls/hr Metronidazole (Flagyl 500mg/100ml Ns) 100 mls @ 100 mls/hr IVPB Q8 [facility] Last Admin: 11/20/16 08:16 Dose: 100 mls/hr Sodium Chloride (Sodium Chloride 0.9%) 1,000 mls @ 175 mls/hr IV .Q5H43M [facility] Last Admin: 11/20/16 04:58 Dose: 175 mls/hr Pantoprazole Sodium (Protonix Inj) 40 mg IVP DAILY [facility] Last Admin: 11/20/16 08:18 Dose: 40 mg Polyethylene Glycol (Miralax) 17 gm PO DAILY [facility] Last Admin: 11/20/16 08:18 Dose: 17 gm Thiamine HCl (Vitamin B1 Tab) 100 mg PO DAILY [facility] Last Admin: 11/20/16 08:17 Dose: 100 mg - Labs Labs: 11/20/16 05:50 11/20/16 05:50 PT 12.2 SECONDS (9.6-11.2) H 11/20/16 05:50 INR 1.17 (0.92-1.08) H 11/20/16 05:50 APTT 43.9 SECONDS (23.3-32.5) H 11/20/16 05:50 - Constitutional Appears: Chronically Ill - Head Exam Head Exam: ATRAUMATIC, NORMAL INSPECTION, NORMOCEPHALIC - Eye Exam Eye Exam: EOMI, Normal appearance, PERRL Pupil Exam: NORMAL ACCOMODATION, PERRL - ENT Exam ENT Exam: Mucous Membranes Moist, Normal Exam - Neck Exam Neck Exam: Full ROM, Normal Inspection. absent: Lymphadenopathy - Respiratory Exam Respiratory Exam: Decreased Breath Sounds, Rales, NORMAL BREATHING PATTERN - Cardiovascular Exam Cardiovascular Exam: REGULAR RHYTHM, +S1, +S2. absent: Murmur - GI/Abdominal Exam GI & Abdominal Exam: Soft, Normal Bowel Sounds. absent: Tenderness - Rectal Exam Rectal Exam: NORMAL INSPECTION - Extremities Exam Extremities Exam: Full ROM, Normal Capillary Refill, Normal Inspection. absent : Joint Swelling, Pedal Edema - Back Exam Back Exam: NORMAL INSPECTION - Neurological Exam Neurological Exam: Alert, Awake, CN II-XII Intact, Normal Gait, Oriented x3 - Psychiatric Exam Psychiatric exam: Normal Affect, Normal Mood - Skin Skin Exam: Dry, Intact, Normal Color, Warm Assessment and Plan - Assessment and Plan (Free Text) Assessment: PNEUMONIA WITH PLEURAL EFFUSION AND CONSOLIDATION CXR FINDINGS APPEAR WORSE TODAY STILL HAS O2 SAT OF 91% ON HIGH FLOW O2 Plan: CONTINUE PRESENT RX WILL REFER FOR CT GUIDED THORACENTESES IN AM
--- NOTE | 2016-11-20 11:01 | RAD ---
HISTORY: f/u PNA, effusion COMPARISON: No prior. FINDINGS: LUNGS: Large right pleural effusion worsened since prior exam with bilateral infiltrates. PLEURA: See above. CARDIOVASCULAR: Normal. OSSEOUS STRUCTURES: No significant abnormalities. VISUALIZED UPPER ABDOMEN: Normal. OTHER FINDINGS: None. IMPRESSION: Large right pleural effusion within since prior exam with bilateral infiltrates.
[2016-11-20] MEDS ORDERED: Iohexol 240 (50 ml) PO ONE (11:24)
--- NOTE | 2016-11-20 13:35 | CP.PCM.CON ---
History of Present Illness - History of Present Illness History of Present Illness: 35 years old male with no significant past medical hx comes with a one day hx of sudden unset of sharp pain across the middle of the abdomen while he was driving. This was continuous, increasing in intensity with respiration and exertion,associated with SOB. He also complained of cold like symptoms with nasal congestion, coughing, fever and chills, on the night prior to this admission. His symptoms progressed and he came to the ER wwhere he was found to have severe pneumonia with respiratory failure IV antibiotics were started empirically and thus far cultures remain negative appears weak anxious and SOB at rest despite hi flow nasal O2 PMH: No chronic Diseases PSH: No known surgical Hx SH: ETOH every other day; No Cigarette smoking; No illegal drug use; Works at a [employer] shop in [facility] no contact with animals, pets or mice ; Lives with family, some family ill with the "flu " No travel outside the area No vomiting or LOC FH: No known family hx Allergies: NKDA Review of Systems - Constitutional Constitutional: Chills, Fatigue, Malaise, Weakness. absent: Weight Loss - EENT Eyes: absent: As Per HPI, Blind Spots, Blurred Vision, Change in Vision, Decreased Night Vision, Diplopia, Discharge, Dry Eye, Exophthalmos, Floaters, Irritation, Itchy Eyes, Loss of Peripheral Vision, Pain, Photophobia, Requires Corrective Lenses, Sees Flashes, Spots in Vision, Tunnel Vision, Other Visual Disturbances, Loss of Vision, Other Ears: absent: As Per HPI, Decreased Hearing, Ear Discharge, Ear Pain, Tinnitus, Abnormal Hearing, Disequilibrium, Dizziness, Other Nose/Mouth/Throat: absent: As Per HPI, Epistaxis, Nasal Congestion, Nasal Discharge, Nasal Obstruction, Nasal Trauma, Nose Pain, Post Nasal Drip, Sinus Pain, Sinus Pressure, Bleeding Gums, Change in Voice, Dental Pain, Dry Mouth, Dysphagia, Halitosis, Hoarsness, Lip Swelling, Mouth Lesions, Mouth Pain, Odynophagia, Sore Throat, Throat Swelling, Tongue Swelling, Facial Pain, Neck Pain, Neck Mass, Other - Cardiovascular Cardiovascular: As Per HPI - Respiratory Respiratory: As Per HPI, Cough, Dyspnea, Dyspnea on Exertion, Chest Congestion, Pain with Coughing. absent: Hemoptysis, Excessive Mucous Production, Change in Mucous Color - Gastrointestinal Gastrointestinal: As Per HPI, Abdominal Pain - Genitourinary Genitourinary: absent: As Per HPI, Change in Urinary Stream, Difficulty Urinating, Dysuria, Flank Pain, Hematuria, Pyuria, Nocturia, Urinary Incontinence, Urinary Frequency, Urinary Hesitance, Urinary Urgency, Voiding Freq/Small Amts, Freq UTI, Hx Renal/Bladder Calculi, Hx /Renal Surgery, Bladder Distension, Other - Musculoskeletal Musculoskeletal: absent: As Per HPI, Abnormal Gait, Arthralgias, Atrophy, Back Pain, Deformity, Joint Swelling, Limited Range of Motion, Loss of Height, Muscle Cramps, Muscle Weakness, Myalgias, Neck Pain, Numbness, Radiating Pain into Limb, Stiffness, Tingling, Other - Integumentary Integumentary: absent: As Per HPI, Acne, Alopecia, Bleeding Lesions, Change in Hair, Change in Nails, Change in Pigmentation, Changing Lesions, Dry Skin, Erythema, Furuncle, Hirsutism, Lesions, New Lesions, Non-Healing Lesions, Photosensitivity, Pruritus, Rash, Skin Pain, Skin Ulcer, Sores, Striae, Swelling , Unusual Bruising, Wounds, Jaundice, Other - Neurological Neurological: absent: As Per HPI, Abnormal Gait, Abnormal Hearing, Abnormal Movements, Abnormal Speech, Behavioral Changes, Burning Sensations, Confusion, Convulsions, Disequilibrium, Dizziness, Numbness, Focal Weakness, Frequent Falls , Headaches, Lack of Coordination, Loss of Vision, Memory Loss, Paresthesias, Radicular Pain, Restless Legs, Sensory Deficit, Syncope, Tingling, Tremor, Vertigo, Weakness, Other Visual Disturbances, Other - Psychiatric Psychiatric: absent: As Per HPI, Abnormal Sleep Pattern, Anhedonia, Anxiety, Auditory Hallucinations, Behavioral Changes, Change in Appetite, Change in Libido, Confusion, Depression, Difficulty Concentrating, Hallucinations, Homicidal Ideation, Hopelessness, Irritability, Memory Loss, Mood Swings, Panic Attacks, Paranoia, Suicidal Ideation, Visual Hallucinations, Tactile Hallucinations, Other - Endocrine Endocrine: absent: As Per HPI, Change in Body Appearance, Change in Libido, Cold Intolorance, Deepening of Voice, Excessive Sweating, Fatigue, Flushing, Heat Intolorance, Increase in Ring/Shoe/Hat Size, Palpitations, Polydipsia, Polyphagia, Polyuria, Other - Hematologic/Lymphatic Hematologic: absent: As Per HPI, Easy Bleeding, Easy Bruising, Lymphadenopathy, Other Past Patient History - Past Medical History & Family History Past Medical History?: No - Past Social History Smoking Status: Never Smoked Chewing Tobacco Use: No Cigar Use: No Alcohol: Social Drugs: Denies Home Situation {Lives}: With Family - CARDIAC Hx Cardiac Disorders: No - PULMONARY Hx Respiratory Disorders: No - NEUROLOGICAL Hx Neurological Disorder: No - HEENT Hx HEENT Problems: No - RENAL Hx Chronic Kidney Disease: No - ENDOCRINE/METABOLIC Hx Endocrine Disorders: No - HEMATOLOGICAL/ONCOLOGICAL Hx Blood Disorders: No - INTEGUMENTARY Hx Dermatological Problems: No - MUSCULOSKELETAL/RHEUMATOLOGICAL Hx Musculoskeletal Disorders: No - GASTROINTESTINAL Hx Gastrointestinal Disorders: No - GENITOURINARY/GYNECOLOGICAL Hx Genitourinary Disorders: No - PSYCHIATRIC Hx Psychophysiologic Disorder: No Hx Substance Use: No - SURGICAL HISTORY Hx Surgeries: No - ANESTHESIA Hx Anesthesia: No Meds Allergies/Adverse Reactions: Allergies Allergy/AdvReac Type Severity Reaction Status Date / Time No Known Allergies Allergy Verified 11/18/16 14:12 - Medications Medications: Current Medications Acetaminophen (Tylenol 325mg Tab) 650 mg PO Q4 PRN PRN Reason: Fever >100.4 F Acetaminophen (Tylenol 325mg Tab) 650 mg PO Q4 PRN PRN Reason: Pain, Mild (1-3) Folic Acid (Folic Acid) 1 mg PO DAILY [facility] Last Admin: 11/20/16 08:17 Dose: 1 mg Hydromorphone HCl (Dilaudid) 1 mg IVP Q4H PRN PRN Reason: Pain, severe (8-10) Last Admin: 11/20/16 09:06 Dose: 1 mg Hydromorphone HCl (Dilaudid) 0.5 mg IVP Q4H PRN PRN Reason: Pain, moderate (4-7) Last Admin: 11/19/16 10:28 Dose: 0.5 mg Piperacillin Sod/Tazobactam (Sod 3.375 gm/ Sodium Chloride) 100 mls @ 100 mls/ hr IVPB Q6 [facility] Last Admin: 11/20/16 09:12 Dose: 100 mls/hr Azithromycin 500 mg/ Sodium (Chloride) 250 mls @ 250 mls/hr IVPB DAILY [facility] Last Admin: 11/20/16 09:09 Dose: 250 mls/hr Metronidazole (Flagyl 500mg/100ml Ns) 100 mls @ 100 mls/hr IVPB Q8 [facility] Last Admin: 11/20/16 08:16 Dose: 100 mls/hr Sodium Chloride (Sodium Chloride 0.9%) 1,000 mls @ 175 mls/hr IV .Q5H43M [facility] Last Admin: 11/20/16 04:58 Dose: 175 mls/hr Pantoprazole Sodium (Protonix Inj) 40 mg IVP DAILY [facility] Last Admin: 11/20/16 08:18 Dose: 40 mg Polyethylene Glycol (Miralax) 17 gm PO DAILY [facility] Last Admin: 11/20/16 08:18 Dose: 17 gm Thiamine HCl (Vitamin B1 Tab) 100 mg PO DAILY [facility] Last Admin: 11/20/16 08:17 Dose: 100 mg Physical Exam - Constitutional Appears: Toxic, Chronically Ill - Head Exam Head Exam: ATRAUMATIC, NORMAL INSPECTION, NORMOCEPHALIC - Eye Exam Eye Exam: EOMI, PERRL. absent: Scleral icterus - ENT Exam ENT Exam: Mucous Membranes Dry, Normal External Ear Exam, Normal Oropharynx - Neck Exam Neck exam: Negative for: Lymphadenopathy, Thyromegaly - Respiratory Exam Respiratory Exam: Decreased Breath Sounds, Rales, Wheezes, Respiratory Distress - Cardiovascular Exam Cardiovascular Exam: Tachycardia, REGULAR RHYTHM, +S1, +S2 - GI/Abdominal Exam GI & Abdominal Exam: Diminished Bowel Sounds, Distended, Soft. absent: Guarding , Organomegaly, Pulsatile Mass, Rebound, Rigid, Tenderness - Rectal Exam Rectal Exam: Deferred - Exam Exam: NORMAL INSPECTION - Extremities Exam Extremities exam: Positive for: pedal pulses present. Negative for: calf tenderness, pedal edema, tenderness - Back Exam Back exam: absent: CVA tenderness (L), CVA tenderness (R), paraspinal tenderness - Neurological Exam Neurological exam: Alert, CN II-XII Intact, Oriented x3, Reflexes Normal - Psychiatric Exam Psychiatric exam: Depressed - Skin Skin Exam: Dry, Intact Results - Vital Signs Recent Vital Signs: Last Vital Signs Temp 97.6 F 11/20/16 12:00 Pulse 127 H 11/20/16 13:00 Resp 21 11/20/16 13:00 BP 153/47 H 11/20/16 13:00 Pulse Ox 93 L 11/20/16 13:00 - Labs Result Diagrams: 11/20/16 05:50 11/20/16 05:50 Labs: Laboratory Results - last 24 hr 11/20/16 05:50 WBC 14.6 H RBC 4.36 L Hgb 13.4 Hct 41.2 MCV 94.4 H MCH 30.7 MCHC 32.5 L RDW 13.2 Plt Count 133 PT 12.2 H INR 1.17 H APTT 43.9 H Sodium 139 Potassium 4.9 Chloride 102 Carbon Dioxide 26 Anion Gap 16 BUN 14 Creatinine 0.7 L Est GFR ( Amer) > 60 Est GFR (Non-Af Amer) > 60 Random Glucose 101 Lactic Acid 1.9 Calcium 8.3 L Total Bilirubin 0.5 AST 37 ALT 30 Alkaline Phosphatase 58 Total Protein 6.1 L Albumin 3.0 L D Globulin 3.2 Albumin/Globulin Ratio 0.9 L Assessment & Plan (1) Abdominal pain Status: Acute (2) Pneumonia Status: Acute (3) Respiratory failure Status: Acute (4) Respiratory failure with hypoxia and hypercapnia Status: Acute - Assessment and Plan (Free Text) Assessment: etiology of pneumonia unclear- viral, atypical, bacterial ? fungal unlikely PCP unlikleuy autoimmune unlikely BOOP to be considered will likely need FOB if no improvement will broaden coverage empirically and start tamiflu despite neg swab
[2016-11-20] MEDS ORDERED: Sodium Chloride 3% for Inhalation 4 ML VIAL.NEB IH PRN (13:43)
--- NOTE | 2016-11-20 15:10 | CP.PCM.PN ---
<RadhasmileyJayy jane - Last Filed: 11/20/16 15:13> Subjective - Date & Time of Evaluation Date of Evaluation: 11/20/16 Time of Evaluation: 11:10 - Subjective Subjective: PGY4 GI Fellow Progress Note Patient seen and examined bedside this morning. The patient is visibly dyspnic in bed despite 100% vapotherm. He denies any complaints with the exception of intermittetn epigastric abdominal pain. Has not passed BM, + flatus. Denies any nausea, vomiting, fever, chills, chest pain. at bedside does admit that he is slightly confused. 12 system ROS perfomed and negative except where stated. Objective - Vital Signs/Intake and Output Vital Signs (last 24 hours): Temp Pulse Resp BP Pulse Ox 97.6 F 127 H 21 153/47 H 93 L 11/20/16 12:00 11/20/16 13:00 11/20/16 13:00 11/20/16 13:00 11/20/16 13:00 Intake and Output: 11/20/16 11/20/16 06:59 18:59 Intake Total 2750 1985 Output Total 425 350 Balance 2325 1635 - Medications Medications: Current Medications Acetaminophen (Tylenol 325mg Tab) 650 mg PO Q4 PRN PRN Reason: Fever >100.4 F Acetaminophen (Tylenol 325mg Tab) 650 mg PO Q4 PRN PRN Reason: Pain, Mild (1-3) Folic Acid (Folic Acid) 1 mg PO DAILY [facility] Last Admin: 11/20/16 08:17 Dose: 1 mg Hydromorphone HCl (Dilaudid) 1 mg IVP Q4H PRN PRN Reason: Pain, severe (8-10) Last Admin: 11/20/16 14:48 Dose: 1 mg Hydromorphone HCl (Dilaudid) 0.5 mg IVP Q4H PRN PRN Reason: Pain, moderate (4-7) Last Admin: 11/19/16 10:28 Dose: 0.5 mg Piperacillin Sod/Tazobactam (Sod 3.375 gm/ Sodium Chloride) 100 mls @ 100 mls/ hr IVPB Q6 [facility] Last Admin: 11/20/16 09:12 Dose: 100 mls/hr Sodium Chloride (Sodium Chloride 0.9%) 1,000 mls @ 175 mls/hr IV .Q5H43M [facility] Last Admin: 11/20/16 14:31 Dose: 175 mls/hr Vancomycin HCl 1 gm/ Sodium (Chloride) 250 mls @ 166.667 mls/hr IVPB Q12H [facility] Levofloxacin/Dextrose (Levaquin 750mg) 150 mls @ 100 mls/hr IVPB DAILY [facility] Oseltamivir Phosphate (Tamiflu Cap) 75 mg PO BID [facility] Pantoprazole Sodium (Protonix Inj) 40 mg IVP DAILY [facility] Last Admin: 11/20/16 08:18 Dose: 40 mg Polyethylene Glycol (Miralax) 17 gm PO DAILY [facility] Last Admin: 11/20/16 08:18 Dose: 17 gm Thiamine HCl (Vitamin B1 Tab) 100 mg PO DAILY [facility] Last Admin: 11/20/16 08:17 Dose: 100 mg - Labs Labs: 11/20/16 05:50 11/20/16 05:50 PT 12.2 SECONDS (9.6-11.2) H 11/20/16 05:50 INR 1.17 (0.92-1.08) H 11/20/16 05:50 APTT 43.9 SECONDS (23.3-32.5) H 11/20/16 05:50 - Constitutional Appears: In Acute Distress (dyspneic) - Eye Exam Eye Exam: EOMI, PERRL - ENT Exam ENT Exam: Mucous Membranes Dry - Respiratory Exam Respiratory Exam: Rales, Rhonchi. absent: Clear to Ausculation Bilateral, Wheezes - Cardiovascular Exam Cardiovascular Exam: Tachycardia, +S1, +S2 - GI/Abdominal Exam GI & Abdominal Exam: Distended, Firm, Hypoactive Bowel Sounds. absent: Guarding , Rigid, Tenderness, Organomegaly - Extremities Exam Extremities Exam: Normal Inspection. absent: Pedal Edema - Neurological Exam Neurological Exam: Alert, Awake, Oriented x3 - Psychiatric Exam Psychiatric exam: Normal Affect, Normal Mood - Skin Skin Exam: Dry, Warm Assessment and Plan - Assessment and Plan (Free Text) Assessment: Patient is a 35yo male without significant PMHx who presented to the ED and was subsequently admitted to the ICU with complaint of severe abdominal pain and shortness of breath. -Sepsis 2/2 B/L pneumonia with B/L effusions -Abdominal pain -Dilated loops of bowel, significant stool suggestive of ileus Plan: -Still with unclear etiology for sudden development of B/L pleural effusions -Severe pneumonia with hypoxia noted on pulse ox - on levaquin, zosyn, vanc -On empiric tamiflu -Pulm, CC following -Miralax 17g PO QD -Serial abdominal exams -Consider CTA chest/abdomen if patient can tolerate exams -Continue with PPI therapy -Continue to monitor clinical course <Jose Carlos Cuello - Last Filed: 11/20/16 15:46> Objective - Vital Signs/Intake and Output Vital Signs (last 24 hours): Temp Pulse Resp BP Pulse Ox 97.6 F 121 H 22 161/93 H 93 L 11/20/16 12:00 11/20/16 15:14 11/20/16 15:14 11/20/16 15:14 11/20/16 15:14 Intake and Output: 11/20/16 11/20/16 06:59 18:59 Intake Total 2750 2335 Output Total 425 350 Balance 2325 1984 - Medications Medications: Current Medications Acetaminophen (Tylenol 325mg Tab) 650 mg PO Q4 PRN PRN Reason: Fever >100.4 F Acetaminophen (Tylenol 325mg Tab) 650 mg PO Q4 PRN PRN Reason: Pain, Mild (1-3) Folic Acid (Folic Acid) 1 mg PO DAILY [facility] Last Admin: 11/20/16 08:17 Dose: 1 mg Hydromorphone HCl (Dilaudid) 1 mg IVP Q4H PRN PRN Reason: Pain, severe (8-10) Last Admin: 11/20/16 14:48 Dose: 1 mg Hydromorphone HCl (Dilaudid) 0.5 mg IVP Q4H PRN PRN Reason: Pain, moderate (4-7) Last Admin: 11/19/16 10:28 Dose: 0.5 mg Piperacillin Sod/Tazobactam (Sod 3.375 gm/ Sodium Chloride) 100 mls @ 100 mls/ hr IVPB Q6 [facility] Last Admin: 11/20/16 15:31 Dose: 100 mls/hr Sodium Chloride (Sodium Chloride 0.9%) 1,000 mls @ 175 mls/hr IV .Q5H43M [facility] Last Admin: 11/20/16 14:31 Dose: 175 mls/hr Vancomycin HCl 1 gm/ Sodium (Chloride) 250 mls @ 166.667 mls/hr IVPB Q12H [facility] Levofloxacin/Dextrose (Levaquin 750mg) 150 mls @ 100 mls/hr IVPB DAILY [facility] Last Admin: 11/20/16 15:25 Dose: 100 mls/hr Oseltamivir Phosphate (Tamiflu Cap) 75 mg PO BID [facility] Pantoprazole Sodium (Protonix Inj) 40 mg IVP DAILY [facility] Last Admin: 11/20/16 08:18 Dose: 40 mg Polyethylene Glycol (Miralax) 17 gm PO DAILY [facility] Last Admin: 11/20/16 08:18 Dose: 17 gm Thiamine HCl (Vitamin B1 Tab) 100 mg PO DAILY [facility] Last Admin: 11/20/16 08:17 Dose: 100 mg - Labs Labs: 11/20/16 05:50 11/20/16 05:50 PT 12.2 SECONDS (9.6-11.2) H 11/20/16 05:50 INR 1.17 (0.92-1.08) H 11/20/16 05:50 APTT 43.9 SECONDS (23.3-32.5) H 11/20/16 05:50 Attending/Attestation - Attestation I have personally seen and examined this patient.: Yes I have fully participated in the care of the patient.: Yes I have reviewed all pertinent clinical information, including history, physical exam and plan: Yes Notes (Text): Patient seen and examined with GI fellow. Agree with his note as documented above with the following additions/exceptions. This is a 35 year old male who is admitted to ICU with hypoxic respiratory failure/bilateral pneumonia with pleural effusion and epigastric abdominal pain. He remains on high flow O2, tachycardic and tachypneic. Continue broad spectrum antibiotics as per ICU, continue tamiflu. Follow up cultures. Lactate improved. Obtain CT angiogram if respiratory status permits. Continue PPI. Discussed with pulmonary and ICU teams. 11/20/16 15:42
--- NOTE | 2016-11-20 16:45 | CT ---
PROCEDURE: CT Abdomen and Pelvis without intravenous contrast HISTORY: epigastric / abdominal pain COMPARISON: None. TECHNIQUE: Technique. Contrast Dose: Radiation dose: Total exam DLP = mGy-cm. FINDINGS: LOWER THORAX: There is a left upper lobe infiltrate as well as consolidation at the left base and compression/atelectasis of the right lower lobe. There are large right pleural effusion is in the small left pleural effusion. LIVER: Unremarkable. No gross lesion or ductal dilatation. GALLBLADDER AND BILE DUCTS: There is vicarious excretion of contrast material into the gallbladder. PANCREAS: Unremarkable. No gross lesion or ductal dilatation. SPLEEN: Unremarkable. ADRENALS: Unremarkable. No mass. KIDNEYS AND URETERS: Unremarkable. No hydronephrosis. No solid mass. VASCULATURE: Unremarkable. No aortic aneurysm. BOWEL: Unremarkable. No obstruction. No gross mural thickening. APPENDIX: Unremarkable. Normal appendix. PERITONEUM: Unremarkable. No free fluid. No free air. LYMPH NODES: Unremarkable. No enlarged lymph nodes. BLADDER: Unremarkable. REPRODUCTIVE: The urinary bladder is distended with contrast material.. BONES: No acute fracture. OTHER FINDINGS: None. IMPRESSION: Atelectasis of the right lower lobe with right pleural effusion as well as left lower lobe infiltrate and left upper lobe infiltrate. Small left pleural effusion. No acute pathology in the abdomen or pelvis.
[2016-11-21] MEDS: Piperacillin/Tazobact 3.375 GM in Sodium Chloride 0.9% 100 ML IVPB SCH (05:27)
[2016-11-21 05:51] LABS: BASO % 0.1 % (0.0-2.0); EOS % 0.1 % (0.0-4.0); HEMATOCRIT 38.2 % (35.0-51.0); LYMPH # 0.5 K/uL (1.0-4.3); LYMPH % 2.2 % (20.0-40.0); MEAN CELL VOLUME 93.4 fl (80.0-94.0); MEAN CORPUSCULAR HGB CONC 33.2 g/dL (33.0-37.0); MEAN PLATELET VOLUME 9.1 fl (7.2-11.7); MONO # 1.3 K/uL (0.0-0.8); MONO % 6.3 % (0.0-10.0); NEUT # 19.2 K/uL (1.8-7.0); NEUT % 91.3 % (50.0-75.0); PLATELET COUNT 148 K/uL (130-400); RED CELL DISTRIBUTION WIDTH 13.9 % (11.5-14.5)
[2016-11-21 08:03] LABS: ALB/GLOB RATIO 0.9 (1.0-2.1); ALKALINE PHOSPHATASE 90 U/L (38-126); ALT/SGPT 26 U/L (21-72); AST/SGOT 30 U/L (17-59); BILIRUBIN,TOTAL 0.3 mg/dl (0.2-1.3); BLOOD UREA NITROGEN 13 mg/dl (9-20); CALCIUM 8.3 mg/dL (8.4-10.2); CARBON DIOXIDE 27 mmol/L (22-30); CHLORIDE 103 mmol/L (98-107); GFR AFRICAN-AMERICAN > 60; GLUCOSE,RANDOM 92 mg/dL (75-110); SODIUM 142 mmol/l (132-148); TOTAL PROTEIN 5.9 G/DL (6.3-8.2)
[2016-11-21] MEDS: POLYETHYLENE GLYCOL 3350 17 GM/Dose PACKET PO SCH (08:38)
--- NOTE | 2016-11-21 09:08 | CP.PCM.PN ---
Subjective - Date & Time of Evaluation Date of Evaluation: 11/21/16 Time of Evaluation: 09:12 - Subjective Subjective: STILLVERY SICK TOXIC L[place]ON TACHYCARDIC BUT EASILY AROUSABLE AQND RESPONDS TO QUESTIONS MILD CONFUSION AT BEDSIDE--CASE DISCUSSED WITH HER AT LENGTH--DR DUMONT ALSO DISCUSSED WITH HER ALL HER QUESTIONS WERE ANSWERED AND SHE WAS MADE TO UNDERSTAND THAT HER IS SERIOUSLY ILL AND MIGHT END UP ON A RESPIEATOR IF HE DOES NOT IMPROVE I ALSO TOLD HER THAT THE PROGNOSIS IS EXTREMELY GUARDED--SHE WANTS TO HAVE HER TRANSFERRED TO ANOTHER FACILITY BECAUSE HIS INSURAMCE IS OUT OF NETWORK WITH [facility] SHE WAS ADVISED TO MAKE ARRANGEMENTS WITH AN ACCEPTING PHYSICIAN AT ANOTHER HOSPITAL AND ALSO SPEAK WITH CHROME PLATER HELPER Objective - Vital Signs/Intake and Output Vital Signs (last 24 hours): Temp Pulse Resp BP Pulse Ox 98.2 F 123 H 20 146/85 91 L 11/21/16 04:00 11/21/16 06:00 11/21/16 08:32 11/21/16 06:00 11/21/16 06:00 Intake and Output: 11/21/16 11/21/16 06:59 18:59 Intake Total 2100 Output Total 2500 Balance -400 - Medications Medications: Current Medications Acetaminophen (Tylenol 325mg Tab) 650 mg PO Q4 PRN PRN Reason: Fever >100.4 F Acetaminophen (Tylenol 325mg Tab) 650 mg PO Q4 PRN PRN Reason: Pain, Mild (1-3) Folic Acid (Folic Acid) 1 mg PO DAILY [facility] Last Admin: 11/21/16 08:37 Dose: 1 mg Hydromorphone HCl (Dilaudid) 1 mg IVP Q4H PRN PRN Reason: Pain, severe (8-10) Last Admin: 11/21/16 08:16 Dose: 1 mg Hydromorphone HCl (Dilaudid) 0.5 mg IVP Q4H PRN PRN Reason: Pain, moderate (4-7) Last Admin: 11/19/16 10:28 Dose: 0.5 mg Piperacillin Sod/Tazobactam (Sod 3.375 gm/ Sodium Chloride) 100 mls @ 100 mls/ hr IVPB Q6 [facility] Last Admin: 11/21/16 05:27 Dose: 100 mls/hr Sodium Chloride (Sodium Chloride 0.9%) 1,000 mls @ 175 mls/hr IV .Q5H43M [facility] Last Admin: 11/20/16 22:08 Dose: 175 mls/hr Vancomycin HCl 1 gm/ Sodium (Chloride) 250 mls @ 166.667 mls/hr IVPB Q12H [facility] Last Admin: 11/21/16 01:38 Dose: 166.667 mls/hr Levofloxacin/Dextrose (Levaquin 750mg) 150 mls @ 100 mls/hr IVPB DAILY [facility] Last Admin: 11/21/16 08:37 Dose: 100 mls/hr Oseltamivir Phosphate (Tamiflu Cap) 75 mg PO BID [facility] Last Admin: 11/21/16 08:38 Dose: 75 mg Pantoprazole Sodium (Protonix Inj) 40 mg IVP DAILY [facility] Last Admin: 11/21/16 08:38 Dose: 40 mg Polyethylene Glycol (Miralax) 17 gm PO DAILY [facility] Last Admin: 11/21/16 08:38 Dose: 17 gm Thiamine HCl (Vitamin B1 Tab) 100 mg PO DAILY [facility] Last Admin: 11/21/16 08:38 Dose: 100 mg - Labs Labs: 11/21/16 04:55 11/21/16 07:30 PT 12.2 SECONDS (9.6-11.2) H 11/20/16 05:50 INR 1.17 (0.92-1.08) H 11/20/16 05:50 APTT 43.9 SECONDS (23.3-32.5) H 11/20/16 05:50 - Constitutional Appears: In Acute Distress - Head Exam Head Exam: ATRAUMATIC, NORMAL INSPECTION, NORMOCEPHALIC - Eye Exam Eye Exam: EOMI, Normal appearance, PERRL Pupil Exam: NORMAL ACCOMODATION, PERRL - ENT Exam ENT Exam: Mucous Membranes Moist, Normal Exam - Neck Exam Neck Exam: Full ROM, Normal Inspection. absent: Lymphadenopathy - Respiratory Exam Respiratory Exam: Decreased Breath Sounds, Prolonged Expiratory Phase, Rales, Wheezes, Respiratory Distress - Cardiovascular Exam Cardiovascular Exam: REGULAR RHYTHM, +S1, +S2. absent: Murmur - GI/Abdominal Exam GI & Abdominal Exam: Soft, Normal Bowel Sounds. absent: Tenderness - Rectal Exam Rectal Exam: NORMAL INSPECTION - Extremities Exam Extremities Exam: Full ROM, Normal Capillary Refill, Normal Inspection. absent : Joint Swelling, Pedal Edema - Back Exam Back Exam: NORMAL INSPECTION - Neurological Exam Neurological Exam: Alert, CN II-XII Intact - Psychiatric Exam Psychiatric exam: Normal Affect, Normal Mood - Skin Skin Exam: Dry, Intact, Normal Color, Warm Assessment and Plan - Assessment and Plan (Free Text) Assessment: BILATERAL PNEUMONIA --?ETHIOLOGY SEPSIS PLEURAL EFFUSION Plan: U/S GUIDED THORACENTESIS WITH INTERVENTIONAL RADIOLOGY PLACE ON 100% FACE MASK INTUBATE AND VENTILATE IF WORSE[DISCUSSED WITH ,G[employer]ATION SERVICE ATTENDANT AND DR DUMONT] PROGNOSIS IS EXTREMELY GUARDED
--- NOTE | 2016-11-21 09:39 | PN ---
DATE: 11/21/2016 The patient seen and examined. Interim events noted. Consults noted, appreciated. Pulmonary and in fectious disease consult, and denture model maker intervention noted and appreciated. Case discussed with pu lmonary and denture model maker. Case also discussed with patient and patient's at bedside at length. Severity of case is explained. The patient is sleepy, arousable, looks tachypneic. Denies any speci fic complaints, although not a reliable historian. PHYSICAL EXAMINATION: GENERAL: The patient is in no acute distress. VITAL SIGNS: Temperature afebrile, pulse 120, respirations 25, blood pressure 140/80. HEENT: Pupils reacting to light. HEART: S1, S2 normal, regular. LUNGS: Good bilateral air exchange. Bilateral basal crepitations. ABDOMEN: Soft, nontender, no organomegaly, no fluid. Bowel sounds are plus. EXTREMITIES: No edema, no calf swelling, no tenderness, no acute ischemia. CENTRAL NERVOUS SYSTEM: Essentially unchanged. The patient was a little obtunded, but is arousable, responsive and communicative. DIAGNOSTIC DATA: Available reviewed. Telemetry monitoring reveals sinus tachycardia, no other signi ficant arrhythmias. Other available labs reviewed. CAT scan of abdomen is unremarkable. GI consult noted and appreciated. The patient has significant bilateral pneumonia. Will go for thor acocentesis if possible today. Case and plan again discussed with patient's family at length. PLAN: As ordered. Rohan Hoffman MD cc: [id number] TT: 11/21/2016 09:37:47 Confirmation # [id number] Dictation # [id number] en
[2016-11-21] MEDS: Sodium Chloride 0.9% 1,000 ML IV SCH ×2 (10:04→22:30)
[2016-11-21] MEDS: FLUCONAZOLE IVPB SCH (10:30)
[2016-11-21] MEDS: PREMIXED IVPB SCH (10:30)
[2016-11-21] MEDS: NS 100 MG IVPB SCH (10:30)
--- NOTE | 2016-11-21 10:49 | CP.PCM.PN ---
Subjective - Date & Time of Evaluation Date of Evaluation: 11/21/16 Time of Evaluation: 08:00 - Subjective Subjective: extremely ill pt is Hypoxic on 100% NRBM and will likely need intubation IV rx is in progress prognosis guarded pt is awake alert but weak Objective - Vital Signs/Intake and Output Vital Signs (last 24 hours): Temp Pulse Resp BP Pulse Ox 98.9 F 131 H 20 146/83 92 L 11/21/16 08:00 11/21/16 08:00 11/21/16 08:32 11/21/16 08:00 11/21/16 08:00 Intake and Output: 11/21/16 11/21/16 06:59 18:59 Intake Total 2100 Output Total 2500 Balance -400 - Medications Medications: Current Medications Acetaminophen (Tylenol 325mg Tab) 650 mg PO Q4 PRN PRN Reason: Fever >100.4 F Acetaminophen (Tylenol 325mg Tab) 650 mg PO Q4 PRN PRN Reason: Pain, Mild (1-3) Folic Acid (Folic Acid) 1 mg PO DAILY [facility] Last Admin: 11/21/16 08:37 Dose: 1 mg Hydromorphone HCl (Dilaudid) 1 mg IVP Q4H PRN PRN Reason: Pain, severe (8-10) Last Admin: 11/21/16 08:16 Dose: 1 mg Hydromorphone HCl (Dilaudid) 0.5 mg IVP Q4H PRN PRN Reason: Pain, moderate (4-7) Last Admin: 11/19/16 10:28 Dose: 0.5 mg Piperacillin Sod/Tazobactam (Sod 3.375 gm/ Sodium Chloride) 100 mls @ 100 mls/ hr IVPB Q6 [facility] Last Admin: 11/21/16 05:27 Dose: 100 mls/hr Sodium Chloride (Sodium Chloride 0.9%) 1,000 mls @ 175 mls/hr IV .Q5H43M [facility] Last Admin: 11/20/16 22:08 Dose: 175 mls/hr Vancomycin HCl 1 gm/ Sodium (Chloride) 250 mls @ 166.667 mls/hr IVPB Q12H [facility] Last Admin: 11/21/16 01:38 Dose: 166.667 mls/hr Levofloxacin/Dextrose (Levaquin 750mg) 150 mls @ 100 mls/hr IVPB DAILY [facility] Last Admin: 11/21/16 08:37 Dose: 100 mls/hr Fluconazole 100 mg/ (Miscellaneous) 50 mls @ 50 mls/hr IVPB DAILY [facility] Oseltamivir Phosphate (Tamiflu Cap) 75 mg PO BID [facility] Last Admin: 11/21/16 08:38 Dose: 75 mg Pantoprazole Sodium (Protonix Inj) 40 mg IVP DAILY [facility] Last Admin: 11/21/16 08:38 Dose: 40 mg Polyethylene Glycol (Miralax) 17 gm PO DAILY [facility] Last Admin: 11/21/16 08:38 Dose: 17 gm Thiamine HCl (Vitamin B1 Tab) 100 mg PO DAILY [facility] Last Admin: 11/21/16 08:38 Dose: 100 mg - Labs Labs: 11/21/16 04:55 11/21/16 07:30 PT 12.2 SECONDS (9.6-11.2) H 11/20/16 05:50 INR 1.17 (0.92-1.08) H 11/20/16 05:50 APTT 43.9 SECONDS (23.3-32.5) H 11/20/16 05:50 - Constitutional Appears: Toxic, In Acute Distress - Eye Exam Eye Exam: PERRL. absent: Scleral icterus - ENT Exam ENT Exam: Mucous Membranes Dry, Normal External Ear Exam - Neck Exam Neck Exam: absent: Lymphadenopathy, Thyromegaly - Respiratory Exam Respiratory Exam: Decreased Breath Sounds, NORMAL BREATHING PATTERN - Cardiovascular Exam Cardiovascular Exam: Tachycardia, REGULAR RHYTHM, +S1, +S2 - GI/Abdominal Exam GI & Abdominal Exam: Distended, Soft. absent: Tenderness, Organomegaly, Pulsatile Mass, Rebound - Rectal Exam Rectal Exam: Deferred - Exam Exam: NORMAL INSPECTION - Extremities Exam Extremities Exam: absent: Calf Tenderness, Pedal Edema, Tenderness - Back Exam Back Exam: absent: CVA tenderness (L), CVA tenderness (R) - Neurological Exam Neurological Exam: Alert, Awake, Oriented x3 Neuro motor strength exam: Left Upper Extremity: 3, Right Upper Extremity: 3, Left Lower Extremity: 3, Right Lower Extremity: 3 - Psychiatric Exam Psychiatric exam: Depressed - Skin Skin Exam: Dry, Intact Assessment and Plan (1) Abdominal pain Status: Acute (2) Pneumonia Status: Acute (3) Respiratory failure Status: Acute (4) Respiratory failure with hypoxia and hypercapnia Status: Acute - Assessment and Plan (Free Text) Assessment: severe bilat pneumonia with resp failure/ sepsis etiology unclear cont vanco/zosyn/ levaquin and tamiflu for thoracentesis/ echo probable intubation
[2016-11-21] MEDS ORDERED: Lidocaine 1% Inj (20ml) ONE (11:03)
[2016-11-21] MEDS: Piperacillin/Tazobact 4.5 GM in Sodium Chloride 0.9% 100 ML IVPB SCH ×3 (12:00→22:09)
--- NOTE | 2016-11-21 12:13 | PCM.SURG1 ---
Surgeon's Initial Post Op Note - Surgeon's Notes Surgeon: Ifeoma Employment Office Clerk: None Type of Anesthesia: Local Pre-Operative Diagnosis: PNA Operative Findings: Large right pleural effusion Post-Operative Diagnosis: Large right pleural effusion. Operation Performed: Right chest tube placement. Specimen/Specimens Removed: 60cc of brown cloudy fuild was aspirated. Estimated Blood Loss: EBL {In ML}: 1 Date of Surgery/Procedure: 11/21/16 Time of Surgery/Procedure: 12:00
[2016-11-21 12:26] LABS: EOSINOPHIL 1 % (0-7); METAMYELOCYTE 1 % (0-0); MYELOCYTE 1 % (0-0); NEUTROPHIL 81 % (42-75); TOTAL CELLS COUNTED 100
[2016-11-21] MEDS ORDERED: Succinylcholine 200 mg/10 ml Inj IV ONE (12:37)
[2016-11-21] MEDS ORDERED: Chlorhexidine Gluconate 1 APPL/PKT TP ONE ×2 (12:43→21:55)
[2016-11-21] MEDS: Enoxaparin 40 mg Syringe SC SCH (13:00)
--- NOTE | 2016-11-21 13:05 | PCM.ANES ---
Anesthesia Emergent Intubation - Diagnosis Working Diagnosis:: Respiratory failure - Intubation Attempts Previous Number of Intubation Attempts:: 0 - Pre-Intubation Vital Signs Blood Pressure: 140/80 Heart Rate: 125 Respiratory Rate: 40 O2 Sat: 90 Oxygen Delivery Method: Face Mask Level Of Consciousness: Inappropriate, Lethargic Intubation Meds Given: Propofol, Succinylcholine - Airway Management Rapid Sequence: Yes Cricoid Pressure: Yes Possible Aspiration: No - Method of Intubation Intubation Method: Oral ETT ETT Size: 8.0 Lipline@: 22 Easy: Yes Atramatic: Yes - Intubation Devices Evan Blade Size Used: 4 - Placement Confirmation Breath Sounds Present & Equal Bilaterally: Yes Gurgling Sounds Not Audible at Epigastrum: Yes Recommendations: Ventilator, Chest X Ray, ABG - Post-Intubation Vital Signs Blood Pressure: 120/70 Heart Rate: 110 Respiratory Rate: 10 O2 Sat: 100
--- NOTE | 2016-11-21 13:18 | CP.PCM.PN ---
<Jayy Carmen - Last Filed: 11/21/16 13:16> Subjective - Date & Time of Evaluation Date of Evaluation: 11/21/16 Time of Evaluation: 12:00 - Subjective Subjective: PGY4 GI Fellow Progress Note Patient seen and examined bedside this afternoon. The patient is rather dyspneic and has just had placement of a right sided chest tube. He does not have any new complaints and currently denies any chest or abdominal pain. Discussed intubation with patient, absorption operator (Dr Jacobson) at bedside. 12 system ROS performed and negative except where stated. Objective - Vital Signs/Intake and Output Vital Signs (last 24 hours): Temp Pulse Resp BP Pulse Ox 99.0 F 125 H 40 H 140/80 90 L 11/21/16 12:07 11/21/16 13:04 11/21/16 13:04 11/21/16 13:04 11/21/16 13:04 Intake and Output: 11/21/16 11/21/16 06:59 18:59 Intake Total 2100 Output Total 2500 Balance -400 - Medications Medications: Current Medications Acetaminophen (Tylenol 325mg Tab) 650 mg PO Q4 PRN PRN Reason: Fever >100.4 F Acetaminophen (Tylenol 325mg Tab) 650 mg PO Q4 PRN PRN Reason: Pain, Mild (1-3) Folic Acid (Folic Acid) 1 mg PO DAILY [facility] Last Admin: 11/21/16 08:37 Dose: 1 mg Hydromorphone HCl (Dilaudid) 1 mg IVP Q4H PRN PRN Reason: Pain, severe (8-10) Last Admin: 11/21/16 08:16 Dose: 1 mg Hydromorphone HCl (Dilaudid) 0.5 mg IVP Q4H PRN PRN Reason: Pain, moderate (4-7) Last Admin: 11/19/16 10:28 Dose: 0.5 mg Sodium Chloride (Sodium Chloride 0.9%) 1,000 mls @ 175 mls/hr IV .Q5H43M [facility] Last Admin: 11/20/16 22:08 Dose: 175 mls/hr Vancomycin HCl 1 gm/ Sodium (Chloride) 250 mls @ 166.667 mls/hr IVPB Q12H [facility] Last Admin: 11/21/16 01:38 Dose: 166.667 mls/hr Levofloxacin/Dextrose (Levaquin 750mg) 150 mls @ 100 mls/hr IVPB DAILY [facility] Last Admin: 11/21/16 08:37 Dose: 100 mls/hr Fluconazole 100 mg/ (Miscellaneous) 50 mls @ 50 mls/hr IVPB DAILY [facility] Piperacillin Sod/Tazobactam (Sod 4.5 gm/ Sodium Chloride) 100 mls @ 100 mls/hr IVPB Q6H [facility] Oseltamivir Phosphate (Tamiflu Cap) 75 mg PO BID [facility] Last Admin: 11/21/16 08:38 Dose: 75 mg Pantoprazole Sodium (Protonix Inj) 40 mg IVP DAILY [facility] Last Admin: 11/21/16 08:38 Dose: 40 mg Polyethylene Glycol (Miralax) 17 gm PO DAILY [facility] Last Admin: 11/21/16 08:38 Dose: 17 gm Thiamine HCl (Vitamin B1 Tab) 100 mg PO DAILY [facility] Last Admin: 11/21/16 08:38 Dose: 100 mg - Labs Labs: 11/21/16 04:55 11/21/16 07:30 PT 12.2 SECONDS (9.6-11.2) H 11/20/16 05:50 INR 1.17 (0.92-1.08) H 11/20/16 05:50 APTT 43.9 SECONDS (23.3-32.5) H 11/20/16 05:50 - Constitutional Appears: Toxic, In Acute Distress (dyspneic) - Eye Exam Eye Exam: EOMI, PERRL - ENT Exam ENT Exam: Mucous Membranes Dry - Respiratory Exam Respiratory Exam: Rales, Rhonchi. absent: Clear to Ausculation Bilateral, Wheezes Additional comments: accessory muscle use - Cardiovascular Exam Cardiovascular Exam: Tachycardia, REGULAR RHYTHM, +S1, +S2 - GI/Abdominal Exam GI & Abdominal Exam: Distended, Soft, Normal Bowel Sounds. absent: Firm, Guarding, Rigid, Tenderness, Organomegaly Additional comments: tympanic - Extremities Exam Extremities Exam: Normal Inspection. absent: Pedal Edema - Neurological Exam Neurological Exam: Alert, Awake, Oriented x3 - Psychiatric Exam Psychiatric exam: Normal Affect, Normal Mood - Skin Skin Exam: Diaphoretic, Warm Assessment and Plan - Assessment and Plan (Free Text) Assessment: Patient is a 35yo male without significant PMHx who presented to the ED and was subsequently admitted to the ICU with complaint of severe abdominal pain and shortness of breath. -Acute hypoxic respiratory failure requiring mechanical ventilation -Sepsis 2/2 B/L pneumonia with B/L effusions s/p right chest tube placement -Abdominal pain -Constipation Plan: -Suspect abdominal pain may be related to ongoing lung pathology -Patient likely to be intubated shortly given persistent hypoxia and accessory muscle use -Continue to treat severe pneumonia, s/p chest tube and on broad spectum antibiotics/antiviral/antifungal -Consider bedside echocardiogram, r/o cardiac pathology - infectious, vascular -Miralax 17g PO BID as tolerated -Continue with PPI therapy -Will sign off at this time, please re-consult if needed. <Kiera Andres MD - Last Filed: 11/21/16 17:36> Objective - Vital Signs/Intake and Output Vital Signs (last 24 hours): Temp Pulse Resp BP Pulse Ox 98.5 F 120 H 24 94/52 L 90 L 11/21/16 16:46 11/21/16 16:46 11/21/16 16:46 11/21/16 16:46 11/21/16 13:04 Intake and Output: 11/21/16 11/21/16 06:59 18:59 Intake Total 2100 Output Total 2500 Balance -400 - Medications Medications: Current Medications Acetaminophen (Tylenol 325mg Tab) 650 mg PO Q4 PRN PRN Reason: Fever >100.4 F Acetaminophen (Tylenol 325mg Tab) 650 mg PO Q4 PRN PRN Reason: Pain, Mild (1-3) Enoxaparin Sodium (Lovenox) 40 mg SC DAILY [facility] PRN Reason: Protocol Folic Acid (Folic Acid) 1 mg PO DAILY [facility] Last Admin: 11/21/16 08:37 Dose: 1 mg Hydromorphone HCl (Dilaudid) 1 mg IVP Q4H PRN PRN Reason: Pain, severe (8-10) Last Admin: 11/21/16 08:16 Dose: 1 mg Hydromorphone HCl (Dilaudid) 0.5 mg IVP Q4H PRN PRN Reason: Pain, moderate (4-7) Last Admin: 11/19/16 10:28 Dose: 0.5 mg Sodium Chloride (Sodium Chloride 0.9%) 1,000 mls @ 175 mls/hr IV .Q5H43M [facility] Last Admin: 11/21/16 10:04 Dose: 175 mls/hr Vancomycin HCl 1 gm/ Sodium (Chloride) 250 mls @ 166.667 mls/hr IVPB Q12H [facility] Last Admin: 11/21/16 15:06 Dose: 166.667 mls/hr Levofloxacin/Dextrose (Levaquin 750mg) 150 mls @ 100 mls/hr IVPB DAILY [facility] Last Admin: 11/21/16 08:37 Dose: 100 mls/hr Fluconazole 100 mg/ (Miscellaneous) 50 mls @ 50 mls/hr IVPB DAILY [facility] Last Admin: 11/21/16 10:30 Dose: 50 mls/hr Piperacillin Sod/Tazobactam (Sod 4.5 gm/ Sodium Chloride) 100 mls @ 100 mls/hr IVPB Q6H [facility] Last Admin: 11/21/16 12:00 Dose: 100 mls/hr Propofol (Diprivan) 100 mls @ 1.905 mls/hr IV .Q24H [facility]; 5 MCG/KG/MIN PRN Reason: Protocol Stop: 11/22/16 13:31 Last Admin: 11/21/16 13:30 Dose: 1.905 mls/hr Oseltamivir Phosphate (Tamiflu Cap) 75 mg PO BID [facility] Last Admin: 11/21/16 08:38 Dose: 75 mg Pantoprazole Sodium (Protonix Inj) 40 mg IVP DAILY [facility] Last Admin: 11/21/16 08:38 Dose: 40 mg Polyethylene Glycol (Miralax) 17 gm PO DAILY [facility] Last Admin: 11/21/16 08:38 Dose: 17 gm Thiamine HCl (Vitamin B1 Tab) 100 mg PO DAILY [facility] Last Admin: 11/21/16 08:38 Dose: 100 mg - Labs Labs: 11/21/16 04:55 11/21/16 07:30 PT 12.2 SECONDS (9.6-11.2) H 11/20/16 05:50 INR 1.17 (0.92-1.08) H 11/20/16 05:50 APTT 43.9 SECONDS (23.3-32.5) H 11/20/16 05:50 Attending/Attestation - Attestation I have personally seen and examined this patient.: Yes I have fully participated in the care of the patient.: Yes I have reviewed all pertinent clinical information, including history, physical exam and plan: Yes Notes (Text): 11/21/16 17:31 Patient seen and examined with GI fellow. Agree with his note as documented above with the following additions/exceptions. This is a 35 year old male who is admitted to ICU with hypoxic respiratory failure/bilateral pneumonia with pleural effusion and epigastric abdominal pain. He is intubated now for pleural effusions with multifocal pneumonia. Continue broad spectrum antibiotics as per ICU, continue tamiflu. Follow up cultures. Continue PPI. Abdominal pain likely due to diaphragmatic pain from multifocal PNA. Will sign off now as CT is unremarkable for GI pathology. Will give stool softeners for stool. Discussed with ICU teams.
[2016-11-21 15:28] LABS: BODY FLUID TYPE PLEURAL
[2016-11-21] MEDS ORDERED: Insulin Lispro (humaLOG) 100 Units/ml Inj SC SCH (16:30)
[2016-11-21 16:56] LABS: BF GROSS APPEARANCE CLOUDY (CLEAR); BODY FLUID TOTAL COUNT 100 (0-0)
[2016-11-21 19:38] LABS: ABG ALLEN TEST YES; ABG MECHANICAL RATE 12; ARTERIAL BLOOD GAS HCO3 27.6 mmol/L (21-28); ARTERIAL BLOOD GAS MODE PRVC/AC; ARTERIAL BLOOD GAS O2 CAPACITY 16.4 mL/dL (16-24); ARTERIAL BLOOD GAS O2 CONTENT 16.2 ML/dL (15-23); ARTERIAL BLOOD GAS PH 7.36 (7.35-7.45); ARTERIAL BLOOD GAS PO2 117 mm/Hg (80-100); ARTERIAL BLOOD HGB O2 SAT 96.6 % (95.0-98.0); ATERIAL BLOOD GAS PEEP 5; CARBOXYHEMOGLOBIN 0.7 % (0.5-1.5); HHB 1.5 % (0.0-5.0); METHEMOGLOBIN 1.2 % (0.0-3.0)
[2016-11-21] MEDS ORDERED: Insulin Detemir 100 Units/ml Inj SC SCH (21:00)
[2016-11-21] MEDS: Acetaminophen 650mg/20.3ml solution UD PO PRN (22:10)
[2016-11-22] MEDS: Piperacillin/Tazobact 4.5 GM in Sodium Chloride 0.9% 100 ML IVPB SCH ×4 (04:12→22:22)
[2016-11-22 05:31] LABS: ABG ALLEN TEST YES; ABG MECHANICAL RATE 12; ARTERIAL BLOOD GAS HCO3 28.8 mmol/L (21-28); ARTERIAL BLOOD GAS MODE PRVC/AC; ARTERIAL BLOOD GAS O2 CAPACITY 16.6 mL/dL (16-24); ARTERIAL BLOOD GAS O2 CONTENT 16.5 ML/dL (15-23); ARTERIAL BLOOD GAS PH 7.43 (7.35-7.45); ARTERIAL BLOOD GAS PO2 174 mm/Hg (80-100); ARTERIAL BLOOD HGB O2 SAT 97.3 % (95.0-98.0); ATERIAL BLOOD GAS PEEP 5; CARBOXYHEMOGLOBIN 0.8 % (0.5-1.5); HHB 0.7 % (0.0-5.0); METHEMOGLOBIN 1.2 % (0.0-3.0)
[2016-11-22] MEDS: Sodium Chloride 0.9% 1,000 ML IV SCH ×2 (05:39→20:20)
[2016-11-22 06:15] LABS: ALB/GLOB RATIO 0.8 (1.0-2.1); ALKALINE PHOSPHATASE 88 U/L (38-126); ALT/SGPT 26 U/L (21-72); AST/SGOT 31 U/L (17-59); BILIRUBIN,TOTAL 0.5 mg/dl (0.2-1.3); BLOOD UREA NITROGEN 14 mg/dl (9-20); CALCIUM 7.8 mg/dL (8.4-10.2); CARBON DIOXIDE 27 mmol/L (22-30); CHLORIDE 107 mmol/L (98-107); GFR AFRICAN-AMERICAN > 60; GLUCOSE,RANDOM 86 mg/dL (75-110); POTASSIUM 3.4 MMOL/L (3.6-5.0); SODIUM 146 mmol/l (132-148); TOTAL PROTEIN 4.9 G/DL (6.3-8.2)
[2016-11-22 06:39] LABS: HEMATOCRIT 34.4 % (35.0-51.0); MEAN CORPUSCULAR HEMOGLOBIN 30.8 pg (27.0-31.0); MEAN CORPUSCULAR HGB CONC 33.1 g/dL (33.0-37.0); RED CELL DISTRIBUTION WIDTH 13.5 % (11.5-14.5); WHITE BLOOD COUNT 17.5 K/uL (4.8-10.8)
--- NOTE | 2016-11-22 08:15 | PN ---
DATE: 11/21/2016 CRITICAL CARE PROGRESS NOTE LOCATION: The patient in ICU, bed 431. TIME SPENT: 45 minutes. The patient is seen and evaluated at the bedside. Discussed with family. ID and pulmonary consult. Overnight on high flow oxygen, saturating 91% to 92%. Noted to be in moderate to severe respiratory distress. Right chest tube was inserted and drained about 450 mL of brownish pleural fluid. The patient continued to be in distress, intubated and placed on mechanical ventilation, sedated on Diprivan drip. PHYSICAL EXAMINATION: VITAL SIGNS: Temperature 99, heart rate 125, blood pressure 140/80, respiratory rate 30-40, oxygen saturation 98 percentage on assist control 12, tidal volume 400, FiO2 100%, pressure support 5_. HEENT: Pupils are reactive. Conjunctivae are pink. Sclerae are white. NECK: Supple. CHEST: Bronchial breathing on right side reduced. Chest tube in place draining pleural effusion. No subcutaneous emphysema. HEART: Rhythm regular. S1, S2, rapid. No audible murmur or rub. ABDOMEN: Mildly distended. No rebound tenderness. EXTREMITIES: Without edema. NEUROLOGIC: Alert, awake, but confused prior to the intubation, now sedated on Diprivan drip. CURRENT MEDICATIONS: Include Tylenol 650 q. 4 p.r.n., Tylenol 650 q. 4 p.r.n. for pain, fluconazole 100 mg IV daily, folic acid 1 mg daily, Dilaudid 1 mg IV q. 4 p.r.n., Dilaudid 0.5 mg IV push q. 4 p.r.n., levofloxacin 750 mg IV daily , Tamiflu 75 mg p.o. twice daily, Zosyn 4.5 grams IV q. 6, MiraLax 17 grams p.o. daily, propofol infusion to facilitate mechanical ventilation, sodium chloride at 175 mL per hour, thiamine 100 mg daily, vancomycin 1 gram IV q. 12. LABORATORY DATA: WBC 21,000, hemoglobin 12.7, hematocrit 38.2, platelet count 148, neutrophils 91.3, lymphocytes 2.2, monocytes 6.3. SMA-7: Sodium 142, potassium 4, chloride 103, CO2 27, blood urea nitrogen 13, creatinine 0.6, lactic acid 1.9, calcium 8.3, total bilirubin 0.3, AST 30, ALT 26, alkaline phosphatase 90, total protein 5.9, albumin 2.8, procalcitonin 30.96. Microbiology: MRSA nasal smear, MRSA not detected. Blood culture, no growth reported. Endotracheal tube lavage for Gram stain culture, fungus pending. Echocardiogram: Normal EF, no pericardial effusion. Chest x-ray: Endotracheal tube in place. Bilateral diffuse infiltrates with bilateral effusion, more on the right than left. CT of abdomen and pelvis: Atelectasis of the right lower lobe with a right pleural effusion, left lower lobe infiltrate, left upper lobe infiltrate, small left pleural effusion, no acute pathology in the abdomen or pelvis. IMPRESSION: Acute hypoxic respiratory failure/acute respiratory distress syndrome, bilateral pneumonia, unclear etiology, adynamic ileus. 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 Will continue ventilatory support, sedation to facilitate mechanical ventilation, antibiotics as recommended by ID consult covering for viral, fungal atypical/typical pneumonia. Followup was report of pleural effusion on the study. DVT and GI prophylaxis. Discussed with family at length and made aware of the critical nature of his illness. Martir Jacobson MD cc: [phone] TT: 11/21/2016 18:34:32 Confirmation # [id number] Dictation # [id number] mn KAREN
[2016-11-22] MEDS: FLUCONAZOLE IVPB SCH (09:20)
[2016-11-22] MEDS: NS 100 MG IVPB SCH (09:20)
[2016-11-22] MEDS: PREMIXED IVPB SCH (09:20)
[2016-11-22] MEDS: Enoxaparin 40 mg Syringe SC SCH (09:22)
[2016-11-22] MEDS: POLYETHYLENE GLYCOL 3350 17 GM/Dose PACKET PO SCH (09:22)
[2016-11-22] MEDS: Potassium CL 10 MEQ/50 ML 50 ML IVPB SCH ×3 (10:24→13:54)
--- NOTE | 2016-11-22 10:35 | PN ---
DATE: 11/22/2016 The patient seen and examined. Interim events noted. Consults noted, appreciated. 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 The patient remains in intensive care unit, now intubated and on a ventilator, not able to provide informative history or review of system. Case and plan and conditi on discussed with patient's at bedside at length. The patient is tolerating current vent settin g. As mentioned earlier, history of review of systems is not obtainable. PHYSICAL EXAMINATION: GENERAL: The patient is orally intubated on mechanical ventilation via endotracheal tube in intensiv e care unit. Tolerating current vent setting without any acute respiratory distress. VITAL SIGNS: Including temperature afebrile, pulse 110, respirations 20, blood pressure 114/76. HEENT: ET tube is in good position and functioning. HEART: S1, S2 tachycardic. No significant murmur, gallop or rub is heard. LUNGS: Show good bilateral air exchange. Bilateral basal crepitations, right more than left. ABDOMEN: Soft, nontender, no organomegaly, no fluid. Bowel sounds are plus. EXTREMITIES: No edema, no calf swelling, no tenderness, no acute ischemia. CENTRAL NERVOUS SYSTEM: The patient is sedated. Total BRAND MGR exam is not possible. DIAGNOSTIC DATA: Available diagnostic data reviewed. Telemetry monitoring reveals sinus tachycardia , but no other significant cardiac arrhythmia. Overall, the patient's general condition is critical, but hemodynamically stable. Case and plan disc ussed with patient's at bedside at length. ____ condition is explained. PLAN: As ordered. Rohan Hoffman MD cc: [id number] TT: 11/22/2016 10:34:16 Confirmation # [id number] Dictation # [id number] tn
--- NOTE | 2016-11-22 10:35 | RAD ---
PROCEDURE: CHEST RADIOGRAPH, 1 VIEW HISTORY: post intubation COMPARISON: Comparison is made to the previous study dated 11/20/2016 FINDINGS: LUNGS: The ET tube is seen at appropriate position. Interval further worsening of diffuse heterogeneous opacity at the left lung compared to the previous exam. Partial re-expansion of the right lower lobe. PLEURA: Large right pleural effusion is again noted appears smaller compared to the previous study. CARDIOVASCULAR: Normal. OSSEOUS STRUCTURES: No significant abnormalities. VISUALIZED UPPER ABDOMEN: Normal. OTHER FINDINGS: None. IMPRESSION: Appropriate position of the ETT. Worsening heterogeneous opacity at the left upper lung. Partial re-expansion of the right lower lobe and interval decrease in the size of the right pleural effusion.
--- NOTE | 2016-11-22 13:38 | US ---
CT guided right-sided chest tube placement History: 35-year-old male with right-sided pleural effusion. Comparison: Comparison is made to a recent CT. Procedure and findings: After discussing relative risks and benefits of the procedure and obtaining informed consent from the patient's , the patient was positioned in [id number] position. The right posterior aspect of the thorax was prepped and draped in the usual sterile techniques. 1% lidocaine was utilized to anesthetize the skin and the subcutaneous tissue of the access site. A 5 Beninese coaxial centesis catheter was then utilized to enter the anterior aspect of the right pleural cavity. The inner stylet was removed and a 75 centimeter stiff Amplatz guidewire was introduced into the pleural cavity. Permanent images were stored. The needle was exchanged for 6 Beninese facial dilator. Subsequently, an 8.5 Beninese locking drainage catheter was then introduced into the right pleural cavity. Approximately 60 cc of brownish slightly bloody fluid was aspirated for microbiologic analysis. The catheter was sutured to the skin and a sterile dressing was applied. The catheter was then attached to a pleur-evac. Final ultrasound image of the catheter was obtained. The patient tolerated the procedure well. IMPRESSION: Successful ultrasound-guided right chest tube placement.
--- NOTE | 2016-11-22 13:55 | CARD ---
APPROVED REPORT EXAM: Two-dimensional and M-mode echocardiogram with Doppler and color Doppler. Other Information Quality : GoodRhythm : Tachycardia INDICATION Infection:Subacute bacterial endocarditis 2D DIMENSIONS IVSd1.01 (0.7-1.1cm)LVDd4.38 (3.9-5.9cm) LVOT Diameter1.88 (1.8-2.4cm)PWd0.98 (0.7-1.1cm) IVSs1.32 (0.8-1.2cm)LVDs3.22 (2.5-4.0cm) FS (%) 26.5 %PWs1.08 (0.8-1.2cm) M-Mode DIMENSIONS Left Atrium (MM)3.49 (2.5-4.0cm)IVSd0.98 (0.7-1.1cm) Aortic Root2.77 (2.2-3.7cm)LVDd4.37 (4.0-5.6cm) Aortic Cusp Exc.2.13 (1.5-2.0cm)PWd0.93 (0.7-1.1cm) IVSs1.31 cmFS (%) 22 % LVDs3.39 (2.0-3.8cm)PWs1.39 cm Mitral Valve E/A ratio0.0 TDI E/Lateral E'0.0E/Medial E'0.0 Tricuspid Valve TR Peak [id number] [id number] Peak Gr.20mmHg [id number] LEFT VENTRICLE The left ventricle is normal size. There is normal left ventricular wall thickness. The left ventricular function is normal. The left ventricular ejection fraction is within the normal range. The Ejection Fraction is 50-55%. There is normal LV segmental wall motion. The left ventricular diastolic function is normal. No left ventricle thrombus noted on this study. There is no mass noted in the left ventricle. RIGHT VENTRICLE The right ventricle is normal size. There is normal right ventricular wall thickness. The right ventricular systolic function is normal. ATRIA The left atrium size is normal. The right atrium size is normal. The interatrial septum is intact with no evidence for an atrial septal defect. AORTIC VALVE The aortic valve is normal in structure and function. No aortic regurgitation is present. There is no aortic valvular stenosis. There is no aortic valvular vegetation. MITRAL VALVE The mitral valve is normal in structure and function. There is no evidence of mitral valve prolapse. There is no mitral valve stenosis. There is no mitral valve regurgitation noted. TRICUSPID VALVE The tricuspid valve is normal in structure and function. There is no tricuspid valve regurgitation noted. There is no tricuspid valve prolapse or vegetation. There is no tricuspid valve stenosis. PULMONIC VALVE The pulmonary valve is normal in structure and function. There is no pulmonic valvular regurgitation. There is no pulmonic valvular stenosis. GREAT VESSELS The aortic root is normal in size. The IVC is normal in size and collapses >50% with inspiration. PERICARDIAL EFFUSION The pericardium appears normal. There is no pleural effusion. <Conclusion> The left ventricle is normal size. The left ventricular function is normal. The left ventricular ejection fraction is within the normal range. The Ejection Fraction is 50-55%.
[2016-11-22] MEDS: Pneumococcal 23-Valent Vaccine IM ONE ×2 (15:09→15:10)
--- NOTE | 2016-11-22 15:49 | RAD ---
PROCEDURE: CHEST RADIOGRAPH, 1 VIEW HISTORY: Intubated. COMPARISON: Multiple serial examinations preceding the most recent study: November 21, 2016. FINDINGS: LUNGS: Stable multifocal infiltrates/ pulmonary edema. PLEURA: Stable, large right pleural effusion. Pigtail catheter remains in the right pleural space. CARDIOVASCULAR: No significant interval change compared to the prior examination(s). OSSEOUS STRUCTURES: No significant abnormalities. VISUALIZED UPPER ABDOMEN: Normal. OTHER FINDINGS: Stable position of support apparatus including nasogastric tube and endotracheal tube. IMPRESSION: No significant interval change compared to the prior examination(s).
--- NOTE | 2016-11-22 16:38 | PN ---
DATE: 11/22/2016 LOCATION: The patient in ICU, bed 433. TIME SPENT: 45 minutes. The patient is seen and evaluated at the bedside. Discussed with the patient's , updated on the critical nature of his clinical condition. ID and Pulmonary consult noted. Overnight intubated, golden linus on mechanical ventilation, sedated on Diprivan drip on AC/PRVC rate 12, tidal volume of 400, FiO2 100%, observed rate 19, exhaled tidal volume of 420, minute ventilation 8.7 L, mean airway pressure 8, end tidal CO2 21. Arterial blood gas shows adequate oxygenation, FIO2 reduced to 70%, still satur ating over 94%. PHYSICAL EXAMINATION: VITAL SIGNS: Temperature 100.8, heart rate of 115-124, sinus tachycardia, blood pressure 121/69, hal n arterial pressure 86, Intake 1550, output 3150, negative 1600. Weight 140 pounds. HEAD, EYES, EARS, NOSE AND THROAT: Pupils are reactive. Conjunctivae are pink. Sclerae are anicter ic. NECK: Supple. Endotracheal tube in place. No secretion noted. HEART: Rhythm regular. S1, S2, rapid. No audible rub or murmur. CHEST: Bilateral breath sounds markedly diminished, fine crepitations at the bases. ABDOMEN: Bowel sounds present, soft. Liver and spleen not palpable. Bladder not distended. EXTREMITIES: No clubbing, cyanosis, edema. SKIN: Without rash. NEUROLOGIC: Sedated on Diprivan drip. Spontaneous breathing trial not done today as patient is not ready for extubation. CURRENT MEDICATIONS: Include vancomycin 1 gram IV q. 8 hours, Zosyn 4.5 grams IV q. 6, Tamiflu 75 mg twice daily, levofloxacin 750 mg daily, folic acid 1 mg daily, fluconazole 100 mg IV daily, MiraLax 17 grams through NG daily, Jevity started titrating to 40 mL per hour. CURRENT LABORATORY DATA: WBC 17.5, hemoglobin 11.4, hematocrit 34.4, platelet count 140. ABG: pH o f 7.43, pCO2 of 45, pO2 174, saturating 99.3 on AC/PRVC 12/400, 100%, PEEP of 5. SMA-7: Sodium 146, potassium 3.4, chloride 107, CO2 27, blood urea nitrogen 14, creatinine 0.6, random glucose 86, calc ium 7.8, total bilirubin 0.5, AST 31, ALT 26, alkaline phosphatase 88, total protein 4.9, albumin 2.2 , procalcitonin 30.96. Pleural fluid: WBC 3485, RBC 5227, cell count 100 with neutrophils 91, lymph ocytes 8, glucose less than 20, total protein 3.5, amylase less than 30. LDH pending. Pleural fluid culture no growth. Fungal culture negative. Nasal smear MRSA negative. Blood culture no growth re ported. Chest x-ray: Endotracheal tube in place, bilateral opacity, no pneumothorax, pigtail cathet er in place. IMPRESSION: 1. Hypoxic respiratory failure. Continue ventilatory support, propofol to facilitate mechanical cesar tilation. Keep head of bed 30 degrees up. 2. Community-acquired pneumonia, etiology unclear. Broad spectrum antibiotics to cover for viral, b acterial infections. Continue nasogastric feeding, deep venous thrombosis and gastrointestinal proph ylaxis. Follow repeat chest x-ray to assess for resolution of consolidation. Pleural effusion, stat us post right pleural pigtail catheter insertion, draining limited, so far 1000 mL 3. Closely monito r progression of clinical progress. Discussed with the patient's . Martir Jacobson MD cc: [id number] TT: 11/22/2016 16:37:49 Confirmation # [id number] Dictation # [id number]
--- NOTE | 2016-11-22 17:23 | CP.PCM.PN ---
Subjective - Date & Time of Evaluation Date of Evaluation: 11/22/16 Time of Evaluation: 17:24 - Subjective Subjective: INTUBATED AND BEING VENTILATED AT BEDSIDE AND CASE DISCUSSED WITH HER R CHEST TUBE STILL IN PLACE WITH DRAINAGE OF PLEURAL FLUID Objective - Vital Signs/Intake and Output Vital Signs (last 24 hours): Temp Pulse Resp BP Pulse Ox 99.7 F H 129 H 13 117/62 96 11/22/16 16:47 11/22/16 16:47 11/22/16 16:47 11/22/16 16:47 11/22/16 16:47 Intake and Output: 11/22/16 11/22/16 06:59 18:59 Intake Total 1550 Output Total 700 Balance 850 - Medications Medications: Current Medications Acetaminophen (Tylenol 325mg Tab) 650 mg PO Q4 PRN PRN Reason: Pain, Mild (1-3) Acetaminophen (Tylenol 650mg/20.3ml Solution Ud) 650 mg PO Q4 PRN PRN Reason: Fever >100.4 F Last Admin: 11/21/16 22:10 Dose: 650 mg Enoxaparin Sodium (Lovenox) 40 mg SC DAILY [facility] PRN Reason: Protocol Last Admin: 11/22/16 09:22 Dose: 40 mg Folic Acid (Folic Acid) 1 mg PO DAILY [facility] Last Admin: 11/22/16 09:21 Dose: 1 mg Levofloxacin/Dextrose (Levaquin 750mg) 150 mls @ 100 mls/hr IVPB DAILY [facility] Last Admin: 11/22/16 11:00 Dose: 100 mls/hr Fluconazole 100 mg/ (Miscellaneous) 50 mls @ 50 mls/hr IVPB DAILY [facility] Last Admin: 11/22/16 09:20 Dose: 50 mls/hr Piperacillin Sod/Tazobactam (Sod 4.5 gm/ Sodium Chloride) 100 mls @ 100 mls/hr IVPB Q6H [facility] Last Admin: 11/22/16 16:56 Dose: 100 mls/hr Propofol (Diprivan) 100 mls @ 18.098 mls/hr IV .Q5H32M [facility]; 47.5 MCG/KG/MIN PRN Reason: Protocol Last Admin: 11/22/16 15:45 Dose: 18.098 mls/hr Sodium Chloride (Sodium Chloride 0.9%) 1,000 mls @ 125 mls/hr IV .Q8H [facility] Stop: 11/22/16 22:01 Last Admin: 11/22/16 05:39 Dose: 125 mls/hr Vancomycin HCl 1 gm/ Sodium (Chloride) 250 mls @ 166.667 mls/hr IVPB Q8H [facility] Last Admin: 11/22/16 13:56 Dose: 166.667 mls/hr Oseltamivir Phosphate (Tamiflu Cap) 75 mg PO BID [facility] Last Admin: 11/22/16 16:55 Dose: 75 mg Pantoprazole Sodium (Protonix Inj) 40 mg IVP DAILY [facility] Last Admin: 11/22/16 09:23 Dose: 40 mg Polyethylene Glycol (Miralax) 17 gm PO DAILY [facility] Last Admin: 11/22/16 09:22 Dose: 17 gm Thiamine HCl (Vitamin B1 Tab) 100 mg PO DAILY [facility] Last Admin: 11/22/16 09:23 Dose: 100 mg - Labs Labs: 11/22/16 05:00 11/22/16 05:00 PT 12.2 SECONDS (9.6-11.2) H 11/20/16 05:50 INR 1.17 (0.92-1.08) H 11/20/16 05:50 APTT 43.9 SECONDS (23.3-32.5) H 11/20/16 05:50 - Constitutional Appears: Chronically Ill - Head Exam Head Exam: ATRAUMATIC, NORMAL INSPECTION, NORMOCEPHALIC - Eye Exam Eye Exam: EOMI, Normal appearance, PERRL Pupil Exam: NORMAL ACCOMODATION, PERRL - ENT Exam ENT Exam: Mucous Membranes Moist, Normal Exam - Neck Exam Neck Exam: Full ROM, Normal Inspection. absent: Lymphadenopathy - Respiratory Exam Respiratory Exam: Rales Additional comments: ON THE VENT - Cardiovascular Exam Cardiovascular Exam: Tachycardia, +S1, +S2. absent: Murmur - GI/Abdominal Exam GI & Abdominal Exam: Soft, Normal Bowel Sounds. absent: Tenderness - Rectal Exam Rectal Exam: NORMAL INSPECTION - Extremities Exam Extremities Exam: Full ROM, Normal Capillary Refill, Normal Inspection. absent : Joint Swelling, Pedal Edema - Back Exam Back Exam: NORMAL INSPECTION - Neurological Exam Neurological Exam: CN II-XII Intact Additional comments: SEDATED - Skin Skin Exam: Dry, Intact, Normal Color, Warm Assessment and Plan - Assessment and Plan (Free Text) Assessment: ACUTE RESP FAILURE PNEUMONIA WITH PLEURAL EFFUSION SEPSIS Plan: CONTINUE PRESENT RX PROGNOSIS IS GUARDED
[2016-11-22] MEDS: Acetaminophen 650mg/20.3ml solution UD PO PRN (20:37)
[2016-11-23] MEDS: Acetaminophen 650mg/20.3ml solution UD PO PRN ×2 (02:37→23:11)
[2016-11-23] MEDS: Piperacillin/Tazobact 4.5 GM in Sodium Chloride 0.9% 100 ML IVPB SCH ×3 (04:54→16:21)
[2016-11-23 05:42] LABS: ABG ALLEN TEST YES; ABG MECHANICAL RATE 12; ARTERIAL BLOOD GAS MODE A/C; ARTERIAL BLOOD GAS O2 CONTENT 16.9 ML/dL (15-23); ARTERIAL BLOOD GAS PH 7.39 (7.35-7.45); ARTERIAL BLOOD GAS PO2 156 mm/Hg (80-100); ARTERIAL BLOOD HGB O2 SAT 96.7 % (95.0-98.0); ATERIAL BLOOD GAS PEEP 5; HHB 0.8 % (0.0-5.0); METHEMOGLOBIN 1.4 % (0.0-3.0)
[2016-11-23 05:59] LABS: HEMATOCRIT 35.5 % (35.0-51.0); MEAN CORPUSCULAR HEMOGLOBIN 30.7 pg (27.0-31.0); RED CELL DISTRIBUTION WIDTH 14.2 % (11.5-14.5); WHITE BLOOD COUNT 21.6 K/uL (4.8-10.8)
[2016-11-23 06:02] LABS: ALB/GLOB RATIO 0.8 (1.0-2.1); ALKALINE PHOSPHATASE 95 U/L (38-126); ALT/SGPT 28 U/L (21-72); AST/SGOT 27 U/L (17-59); BILIRUBIN,TOTAL 0.3 mg/dl (0.2-1.3); BLOOD UREA NITROGEN 13 mg/dl (9-20); CALCIUM 7.7 mg/dL (8.4-10.2); CARBON DIOXIDE 30 mmol/L (22-30); CHLORIDE 109 mmol/L (98-107); GFR AFRICAN-AMERICAN > 60; GLUCOSE,RANDOM 118 mg/dL (75-110); POTASSIUM 3.4 MMOL/L (3.6-5.0); SODIUM 149 mmol/l (132-148); TOTAL PROTEIN 5.2 G/DL (6.3-8.2)
--- NOTE | 2016-11-23 07:07 | CP.CCUPN ---
CCU Subjective - Physician Review Subjective (Free Text): G[employer] P[employer]ER PROGRESS NOTE Patient examined, interim events reviewed: Sedated on propofol, still tachycardic, but less so, CT has drained approx 1200 ml total so far, Low grade temps noted to 100.1F max yesterday; now at 99F, 108 , 118/66, , 16, SPO2 98% on 70% oxygen, PEEP 5 TV 400ml. 24I/O's = 1855/1240 ml ROS: as above, no other obtainable pertinent negs or positives on 10 system review. PMFSH: all nursing and historical notes reviewed, no new pertinent data relevant to current problems. No other distress noted: EXAM- HEENT: no icterus, pupils equal and reactive, OGT in place. NECK: no visible JVD, supple, carotids equal upstroke bilat/no bruits CHEST: decreased BS bases, no wheezes audible HEART: regular, distant, S1S2, no murmur audible, no rubs. ABD: soft, no increased distention, no focal tenderness, no HSM. BS hypoactive , EXT: no leg edema, no peripheral/ digital cyanosis, no calf tenderness or palpable cords, distal pulses intact and symmetrical NEURO: no gross focal motor deficits, + tone SKIN: no rashes LABS: WBC= 21.6 HGB= 11.7 PLTs= 168K Na= 149 K= 3.4 HCO3= 30 BUN/Cr= 13/0.6 BS= 118 Vanco = < 5. CXR: ETT position OK above disha, improved aeration noted bilaterally, R effusion persists, pigtail intact in R lung base, no PTX seen (my Interp). Assessment: 1. Acute Hypoxemic Resp failure 2' bilat Pneumonia 2. Ileus 3. Chronic Alcoholism PLAN: 1. Day #3 MV support, try decreasing Fio2 to 60% and increase PEEp to 8, check repeat ABG, will allow some hypercapnia. Start Duonebs. 2. No organisms isolatable, empiric Zosyn, Vanco, Diflucan, Tamiflu and levaquin noted. Will need to increase dosing of Vanco. 3. There is much residual fluid in R lung not being drained by Pigtail catheter. Will discuss with Pulm regarding upsizing chest tube. 4. Serum Na rising, start free water administration. 5. Discussed present status with .
[2016-11-23] MEDS: PREMIXED IVPB SCH (08:13)
[2016-11-23] MEDS: FLUCONAZOLE IVPB SCH (08:13)
[2016-11-23] MEDS: NS 100 MG IVPB SCH (08:13)
[2016-11-23] MEDS: Enoxaparin 40 mg Syringe SC SCH (08:16)
--- NOTE | 2016-11-23 10:31 | CP.PCM.PN ---
Subjective - Date & Time of Evaluation Date of Evaluation: 11/23/16 Time of Evaluation: 10:36 - Subjective Subjective: STILL ON THE RESPIRATOR CXR SHOWS PERSISTENT PROBABLY LOCULATED R PLEURAL EFFUSION WITH SMALL PIG TAIL CATHETER IN PLACE PLEURAL FLUID RESULTS AND ALL CULTURES SO FAR NO GROWTH Objective - Vital Signs/Intake and Output Vital Signs (last 24 hours): Temp Pulse Resp BP Pulse Ox 99.2 F 113 H 12 122/67 97 11/23/16 08:00 11/23/16 10:00 11/23/16 10:00 11/23/16 10:00 11/23/16 10:00 Intake and Output: 11/23/16 11/23/16 06:59 18:59 Intake Total 1855 575 Output Total 1020 Balance 835 575 - Medications Medications: Current Medications Acetaminophen (Tylenol 325mg Tab) 650 mg PO Q4 PRN PRN Reason: Pain, Mild (1-3) Acetaminophen (Tylenol 650mg/20.3ml Solution Ud) 650 mg PO Q4 PRN PRN Reason: Fever >100.4 F Last Admin: 11/23/16 02:37 Dose: 650 mg Albuterol/Ipratropium (Duoneb 3 Mg/0.5 Mg (3 Ml) Ud) 3 ml INH RQID [facility]I Enoxaparin Sodium (Lovenox) 40 mg SC DAILY [facility] PRN Reason: Protocol Last Admin: 11/23/16 08:16 Dose: 40 mg Folic Acid (Folic Acid) 1 mg PO DAILY [facility] Last Admin: 11/23/16 08:17 Dose: 1 mg Levofloxacin/Dextrose (Levaquin 750mg) 150 mls @ 100 mls/hr IVPB DAILY [facility] Last Admin: 11/23/16 08:41 Dose: 100 mls/hr Fluconazole 100 mg/ (Miscellaneous) 50 mls @ 50 mls/hr IVPB DAILY [facility] Last Admin: 11/23/16 08:13 Dose: 50 mls/hr Piperacillin Sod/Tazobactam (Sod 4.5 gm/ Sodium Chloride) 100 mls @ 100 mls/hr IVPB Q6H [facility] Last Admin: 11/23/16 10:10 Dose: 100 mls/hr Propofol (Diprivan) 100 mls @ 18.098 mls/hr IV .Q5H32M [facility]; 47.5 MCG/KG/MIN PRN Reason: Protocol Last Admin: 11/23/16 10:13 Dose: 18.098 mls/hr Vancomycin HCl 1.25 gm/ Sodium (Chloride) 250 mls @ 125 mls/hr IVPB Q8H [facility] Oseltamivir Phosphate (Tamiflu Cap) 75 mg PO BID [facility] Last Admin: 11/23/16 08:18 Dose: 75 mg Pantoprazole Sodium (Protonix Inj) 40 mg IVP DAILY [facility] Last Admin: 11/23/16 08:17 Dose: 40 mg Polyethylene Glycol (Miralax) 17 gm PO DAILY [facility] Last Admin: 11/22/16 09:22 Dose: 17 gm Thiamine HCl (Vitamin B1 Tab) 100 mg PO DAILY [facility] Last Admin: 11/23/16 08:17 Dose: 100 mg - Labs Labs: 11/23/16 05:10 11/23/16 05:10 PT 12.2 SECONDS (9.6-11.2) H 11/20/16 05:50 INR 1.17 (0.92-1.08) H 11/20/16 05:50 APTT 43.9 SECONDS (23.3-32.5) H 11/20/16 05:50 - Constitutional Appears: Chronically Ill - Head Exam Head Exam: ATRAUMATIC, NORMAL INSPECTION, NORMOCEPHALIC - Eye Exam Eye Exam: EOMI, Normal appearance, PERRL Pupil Exam: NORMAL ACCOMODATION, PERRL - ENT Exam ENT Exam: Mucous Membranes Moist, Normal Exam - Neck Exam Neck Exam: Full ROM, Normal Inspection. absent: Lymphadenopathy - Respiratory Exam Respiratory Exam: Decreased Breath Sounds - Cardiovascular Exam Cardiovascular Exam: Tachycardia, REGULAR RHYTHM, +S1, +S2. absent: Murmur - GI/Abdominal Exam GI & Abdominal Exam: Soft, Normal Bowel Sounds. absent: Tenderness - Rectal Exam Rectal Exam: NORMAL INSPECTION - Exam Exam: NORMAL INSPECTION - Extremities Exam Extremities Exam: Full ROM, Normal Capillary Refill, Normal Inspection. absent : Joint Swelling, Pedal Edema - Back Exam Back Exam: NORMAL INSPECTION - Neurological Exam Neurological Exam: Alert, Awake, CN II-XII Intact, Normal Gait, Oriented x3 - Psychiatric Exam Psychiatric exam: Normal Affect, Normal Mood - Skin Skin Exam: Dry, Intact, Normal Color, Warm Assessment and Plan - Assessment and Plan (Free Text) Assessment: ACUTE RESPIRATORY FAILURE PLEURAL EFFUSION--?ETHIOLOGY BILATERAL PNEUMONIA Plan: WILL REQUEST THORACIC SURGERY EVALUATION FOR POSSIBLE VATS/ADEQUATE PULMONARY DRAINAGE CASE DISCUSSED WITH DR ROUSE--THORACIC SURGEON
--- NOTE | 2016-11-23 11:29 | RAD ---
HISTORY: Intubated. COMPARISON: Comparison is made to the previous study dated 11/22/2016 FINDINGS: LUNGS: The ET tube is seen at appropriate position. Interval improvement in the left lung compared to the previous exam. Otherwise no change. PLEURA: Moderate to large right-sided pleural effusion is again seen. CARDIOVASCULAR: Normal. OSSEOUS STRUCTURES: No significant abnormalities. VISUALIZED UPPER ABDOMEN: Normal. OTHER FINDINGS: None. IMPRESSION: Interval improvement in the left lung since the previous study. Otherwise no change.
[2016-11-23] MEDS ORDERED: Lidocaine 1% Inj (20ml) IJ STA (11:38)
--- NOTE | 2016-11-23 12:19 | CP.PCM.CON ---
<Allan Pascualn Natan - Last Filed: 11/23/16 12:07> History of Present Illness - History of Present Illness History of Present Illness: Reason for consultation:Pleural effusion,right. Reqested by: Dr. Phelps. Pt s/e, sedated and intubated. 35 yo male, no apparent past medical hx, presented to ER with hx of sudden epigatric pain and sob. A pig tail cath was inserted by IR, and although draining, not able to evacuate effusion completely associated with fevers and increasing wbc. Chest fluid so has been negative.. I have reviewed progress notes and imaging studies, and decided to insert a chest tube at the bedside to effectively drain the effusion. If it fails, then will do VATS. a/p: 1. Right pleural effusuon, etiol.? 2. Bilateral infiltrates/ 3.Sepsis. 4. r/o esophageal perforation.? 5. d/w Dr. Lemus. Past Patient History - Past Medical History & Family History Past Medical History?: No - Past Social History Alcohol: Occasional Drugs: Denies - CARDIAC Hx Cardiac Disorders: No - PULMONARY Hx Respiratory Disorders: No - NEUROLOGICAL Hx Neurological Disorder: No - HEENT Hx HEENT Problems: No - RENAL Hx Chronic Kidney Disease: No - ENDOCRINE/METABOLIC Hx Endocrine Disorders: No - HEMATOLOGICAL/ONCOLOGICAL Hx Blood Disorders: No - INTEGUMENTARY Hx Dermatological Problems: No - MUSCULOSKELETAL/RHEUMATOLOGICAL Hx Musculoskeletal Disorders: No - GASTROINTESTINAL Hx Gastrointestinal Disorders: No - GENITOURINARY/GYNECOLOGICAL Hx Genitourinary Disorders: No - PSYCHIATRIC Hx Psychophysiologic Disorder: No Hx Substance Use: No - SURGICAL HISTORY Hx Surgeries: No - ANESTHESIA Hx Anesthesia: No Meds Allergies/Adverse Reactions: Allergies Allergy/AdvReac Type Severity Reaction Status Date / Time No Known Allergies Allergy Verified 11/18/16 14:12 - Medications Medications: Current Medications Acetaminophen (Tylenol 325mg Tab) 650 mg PO Q4 PRN PRN Reason: Pain, Mild (1-3) Acetaminophen (Tylenol 650mg/20.3ml Solution Ud) 650 mg PO Q4 PRN PRN Reason: Fever >100.4 F Last Admin: 11/23/16 02:37 Dose: 650 mg Albuterol/Ipratropium (Duoneb 3 Mg/0.5 Mg (3 Ml) Ud) 3 ml INH RQID [facility]ARI Enoxaparin Sodium (Lovenox) 40 mg SC DAILY [facility] PRN Reason: Protocol Last Admin: 11/23/16 08:16 Dose: 40 mg Folic Acid (Folic Acid) 1 mg PO DAILY [facility] Last Admin: 11/23/16 08:17 Dose: 1 mg Levofloxacin/Dextrose (Levaquin 750mg) 150 mls @ 100 mls/hr IVPB DAILY [facility] Last Admin: 11/23/16 08:41 Dose: 100 mls/hr Fluconazole 100 mg/ (Miscellaneous) 50 mls @ 50 mls/hr IVPB DAILY [facility] Last Admin: 11/23/16 08:13 Dose: 50 mls/hr Piperacillin Sod/Tazobactam (Sod 4.5 gm/ Sodium Chloride) 100 mls @ 100 mls/hr IVPB Q6H [facility] Last Admin: 11/23/16 10:10 Dose: 100 mls/hr Propofol (Diprivan) 100 mls @ 18.098 mls/hr IV .Q5H32M [facility]; 47.5 MCG/KG/MIN PRN Reason: Protocol Last Admin: 11/23/16 10:13 Dose: 18.098 mls/hr Vancomycin HCl 1.25 gm/ Sodium (Chloride) 250 mls @ 125 mls/hr IVPB Q8H [facility] Last Admin: 11/23/16 11:43 Dose: 125 mls/hr Oseltamivir Phosphate (Tamiflu Cap) 75 mg PO BID [facility] Last Admin: 11/23/16 08:18 Dose: 75 mg Pantoprazole Sodium (Protonix Inj) 40 mg IVP DAILY [facility] Last Admin: 11/23/16 08:17 Dose: 40 mg Polyethylene Glycol (Miralax) 17 gm PO DAILY [facility] Last Admin: 11/22/16 09:22 Dose: 17 gm Thiamine HCl (Vitamin B1 Tab) 100 mg PO DAILY [facility] Last Admin: 11/23/16 08:17 Dose: 100 mg Results - Vital Signs Recent Vital Signs: Last Vital Signs Temp 99.2 F 11/23/16 08:00 Pulse 108 H 11/23/16 11:00 Resp 23 11/23/16 11:00 BP 121/60 11/23/16 11:00 Pulse Ox 99 11/23/16 11:00 - Labs Result Diagrams: 11/23/16 05:10 11/23/16 05:10 Labs: Laboratory Results - last 24 hr 11/21/16 11/22/16 11/23/16 09:00 08:32 05:00 WBC RBC Hgb Hct MCV MCH MCHC RDW Plt Count pCO2 57 H pO2 156 H HCO3 31.0 H ABG pH 7.39 ABG Total CO2 36.2 H ABG O2 Saturation 99.2 H ABG O2 Content 16.9 ABG Base Excess 7.8 H ABG Hemoglobin 12.2 ABG Carboxyhemoglobin 1.0 POC ABG HHb (Measured) 0.8 ABG Methemoglobin 1.4 ABG O2 Capacity 17.0 Panchito Test Yes A-a O2 Difference 272.0 Hgb O2 Saturation 96.7 Vent Mode A/c Mechanical Rate 12 FiO2 70.0 Tidal Volume 400 PEEP 5 Crit Value Called By 333 Blood Gas Notified Time 530 Sodium Potassium Chloride Carbon Dioxide Anion Gap BUN Creatinine Est GFR ( Amer) Est GFR (Non-Af Amer) Random Glucose Calcium Total Bilirubin AST ALT Alkaline Phosphatase Total Protein Albumin Globulin Albumin/Globulin Ratio Vancomycin Trough Rheum Arthritis Panel Negative HIV 1&2 Antibody Screen Negative TB Test (QFT) Nil 0.03 TB Test Mitogen - Nil 0.03 TB Test TB - Nil 0.01 TB Test (QFT) Indeterminate H 11/23/16 05:10 WBC 21.6 H RBC 3.82 L Hgb 11.7 L Hct 35.5 MCV 93.0 MCH 30.7 MCHC 33.0 RDW 14.2 Plt Count 168 pCO2 pO2 HCO3 ABG pH ABG Total CO2 ABG O2 Saturation ABG O2 Content ABG Base Excess ABG Hemoglobin ABG Carboxyhemoglobin POC ABG HHb (Measured) ABG Methemoglobin ABG O2 Capacity Panchito Test A-a O2 Difference Hgb O2 Saturation Vent Mode Mechanical Rate FiO2 Tidal Volume PEEP Crit Value Called By Blood Gas Notified Time Sodium 149 H Potassium 3.4 L Chloride 109 H Carbon Dioxide 30 Anion Gap 13 BUN 13 Creatinine 0.6 L Est GFR ( Amer) > 60 Est GFR (Non-Af Amer) > 60 Random Glucose 118 H Calcium 7.7 L Total Bilirubin 0.3 AST 27 ALT 28 Alkaline Phosphatase 95 Total Protein 5.2 L Albumin 2.3 L Globulin 2.9 Albumin/Globulin Ratio 0.8 L Vancomycin Trough < 5.0 L Rheum Arthritis Panel HIV 1&2 Antibody Screen TB Test (QFT) Nil TB Test Mitogen - Nil TB Test TB - Nil TB Test (QFT) <Edith,Dat De La O - Last Filed: 11/23/16 13:16> Meds - Medications Medications: Current Medications Acetaminophen (Tylenol 325mg Tab) 650 mg PO Q4 PRN PRN Reason: Pain, Mild (1-3) Acetaminophen (Tylenol 650mg/20.3ml Solution Ud) 650 mg PO Q4 PRN PRN Reason: Fever >100.4 F Last Admin: 11/23/16 02:37 Dose: 650 mg Albuterol/Ipratropium (Duoneb 3 Mg/0.5 Mg (3 Ml) Ud) 3 ml INH RQID [facility]YRI Enoxaparin Sodium (Lovenox) 40 mg SC DAILY [facility] PRN Reason: Protocol Last Admin: 11/23/16 08:16 Dose: 40 mg Folic Acid (Folic Acid) 1 mg PO DAILY [facility] Last Admin: 11/23/16 08:17 Dose: 1 mg Levofloxacin/Dextrose (Levaquin 750mg) 150 mls @ 100 mls/hr IVPB DAILY [facility] Last Admin: 11/23/16 08:41 Dose: 100 mls/hr Fluconazole 100 mg/ (Miscellaneous) 50 mls @ 50 mls/hr IVPB DAILY [facility] Last Admin: 11/23/16 08:13 Dose: 50 mls/hr Piperacillin Sod/Tazobactam (Sod 4.5 gm/ Sodium Chloride) 100 mls @ 100 mls/hr IVPB Q6H [facility] Last Admin: 11/23/16 10:10 Dose: 100 mls/hr Propofol (Diprivan) 100 mls @ 18.098 mls/hr IV .Q5H32M [facility]; 47.5 MCG/KG/MIN PRN Reason: Protocol Last Admin: 11/23/16 10:13 Dose: 18.098 mls/hr Vancomycin HCl 1.25 gm/ Sodium (Chloride) 250 mls @ 125 mls/hr IVPB Q8H [facility] Last Admin: 11/23/16 11:43 Dose: 125 mls/hr Oseltamivir Phosphate (Tamiflu Cap) 75 mg PO BID [facility] Last Admin: 11/23/16 08:18 Dose: 75 mg Pantoprazole Sodium (Protonix Inj) 40 mg IVP DAILY [facility] Last Admin: 11/23/16 08:17 Dose: 40 mg Polyethylene Glycol (Miralax) 17 gm PO DAILY [facility] Last Admin: 11/22/16 09:22 Dose: 17 gm Thiamine HCl (Vitamin B1 Tab) 100 mg PO DAILY [facility] Last Admin: 11/23/16 08:17 Dose: 100 mg Results - Vital Signs Recent Vital Signs: Last Vital Signs Temp 99.5 F 11/23/16 12:00 Pulse 106 H 11/23/16 12:26 Resp 15 11/23/16 12:26 BP 106/65 11/23/16 12:26 Pulse Ox 98 11/23/16 12:26 - Labs Result Diagrams: 11/23/16 05:10 11/23/16 05:10 Labs: Laboratory Results - last 24 hr 11/21/16 11/22/16 11/23/16 09:00 08:32 05:00 WBC RBC Hgb Hct MCV MCH MCHC RDW Plt Count pCO2 57 H pO2 156 H HCO3 31.0 H ABG pH 7.39 ABG Total CO2 36.2 H ABG O2 Saturation 99.2 H ABG O2 Content 16.9 ABG Base Excess 7.8 H ABG Hemoglobin 12.2 ABG Carboxyhemoglobin 1.0 POC ABG HHb (Measured) 0.8 ABG Methemoglobin 1.4 ABG O2 Capacity 17.0 Panchito Test Yes A-a O2 Difference 272.0 Hgb O2 Saturation 96.7 Vent Mode A/c Mechanical Rate 12 FiO2 70.0 Tidal Volume 400 PEEP 5 Crit Value Called By 333 Blood Gas Notified Time 530 Sodium Potassium Chloride Carbon Dioxide Anion Gap BUN Creatinine Est GFR ( Amer) Est GFR (Non-Af Amer) Random Glucose Calcium Total Bilirubin AST ALT Alkaline Phosphatase Total Protein Albumin Globulin Albumin/Globulin Ratio Fluid Source Vancomycin Trough HIV 1&2 Antibody Screen Negative TB Test (QFT) Nil 0.03 TB Test Mitogen - Nil 0.03 TB Test TB - Nil 0.01 TB Test (QFT) Indeterminate H 11/23/16 11/23/16 05:10 13:12 WBC 21.6 H RBC 3.82 L Hgb 11.7 L Hct 35.5 MCV 93.0 MCH 30.7 MCHC 33.0 RDW 14.2 Plt Count 168 pCO2 pO2 HCO3 ABG pH ABG Total CO2 ABG O2 Saturation ABG O2 Content ABG Base Excess ABG Hemoglobin ABG Carboxyhemoglobin POC ABG HHb (Measured) ABG Methemoglobin ABG O2 Capacity Panchito Test A-a O2 Difference Hgb O2 Saturation Vent Mode Mechanical Rate FiO2 Tidal Volume PEEP Crit Value Called By Blood Gas Notified Time Sodium 149 H Potassium 3.4 L Chloride 109 H Carbon Dioxide 30 Anion Gap 13 BUN 13 Creatinine 0.6 L Est GFR ( Amer) > 60 Est GFR (Non-Af Amer) > 60 Random Glucose 118 H Calcium 7.7 L Total Bilirubin 0.3 AST 27 ALT 28 Alkaline Phosphatase 95 Total Protein 5.2 L Albumin 2.3 L Globulin 2.9 Albumin/Globulin Ratio 0.8 L Fluid Source Pleural Vancomycin Trough < 5.0 L HIV 1&2 Antibody Screen TB Test (QFT) Nil TB Test Mitogen - Nil TB Test TB - Nil TB Test (QFT) Chest Tube Insertion - Chest Tube Placement Indication: Other (pleural effusion) Consent Obtained: Written Procedural Sedation: Morphine Procedure Description: Prepped W/Betadine, Sterile Drape Applied, Local Anes Used: (1% lidocaine) Incision Completed And Tube Inserted At: 5th ICS right side Post Insertion Procedure(s): Tube Sutured To Chest Wall, CXR Completed To Confirm Placement, Tube Connected To Suction, No Air Leak Noted
[2016-11-23] MEDS: Albuterol-Ipratrop 3 mg / 0.5 (3 ml) UD INH SCH ×3 (12:20→20:36)
[2016-11-23 13:13] LABS: BODY FLUID TYPE PLEURAL
--- NOTE | 2016-11-23 13:32 | CP.PCM.PN ---
Subjective - Date & Time of Evaluation Date of Evaluation: 11/23/16 Time of Evaluation: 09:00 - Subjective Subjective: seen by ct surgery for VATS if no improvement GI on board r/o esophageal perf all cultures neg thus far intubated/sedated Objective - Vital Signs/Intake and Output Vital Signs (last 24 hours): Temp Pulse Resp BP Pulse Ox 99.5 F 106 H 15 106/65 98 11/23/16 12:00 11/23/16 12:26 11/23/16 12:26 11/23/16 12:26 11/23/16 12:26 Intake and Output: 11/23/16 11/23/16 06:59 18:59 Intake Total 1855 825 Output Total 1020 Balance 835 825 - Medications Medications: Current Medications Acetaminophen (Tylenol 325mg Tab) 650 mg PO Q4 PRN PRN Reason: Pain, Mild (1-3) Acetaminophen (Tylenol 650mg/20.3ml Solution Ud) 650 mg PO Q4 PRN PRN Reason: Fever >100.4 F Last Admin: 11/23/16 02:37 Dose: 650 mg Albuterol/Ipratropium (Duoneb 3 Mg/0.5 Mg (3 Ml) Ud) 3 ml INH RQID [facility] Enoxaparin Sodium (Lovenox) 40 mg SC DAILY [facility] PRN Reason: Protocol Last Admin: 11/23/16 08:16 Dose: 40 mg Folic Acid (Folic Acid) 1 mg PO DAILY [facility] Last Admin: 11/23/16 08:17 Dose: 1 mg Levofloxacin/Dextrose (Levaquin 750mg) 150 mls @ 100 mls/hr IVPB DAILY [facility] Last Admin: 11/23/16 08:41 Dose: 100 mls/hr Fluconazole 100 mg/ (Miscellaneous) 50 mls @ 50 mls/hr IVPB DAILY [facility] Last Admin: 11/23/16 08:13 Dose: 50 mls/hr Piperacillin Sod/Tazobactam (Sod 4.5 gm/ Sodium Chloride) 100 mls @ 100 mls/hr IVPB Q6H [facility] Last Admin: 11/23/16 10:10 Dose: 100 mls/hr Propofol (Diprivan) 100 mls @ 18.098 mls/hr IV .Q5H32M [facility]; 47.5 MCG/KG/MIN PRN Reason: Protocol Last Admin: 11/23/16 10:13 Dose: 18.098 mls/hr Vancomycin HCl 1.25 gm/ Sodium (Chloride) 250 mls @ 125 mls/hr IVPB Q8H [facility] Last Admin: 11/23/16 11:43 Dose: 125 mls/hr Oseltamivir Phosphate (Tamiflu Cap) 75 mg PO BID [facility] Last Admin: 11/23/16 08:18 Dose: 75 mg Pantoprazole Sodium (Protonix Inj) 40 mg IVP DAILY [facility] Last Admin: 11/23/16 08:17 Dose: 40 mg Polyethylene Glycol (Miralax) 17 gm PO DAILY [facility] Last Admin: 11/22/16 09:22 Dose: 17 gm Thiamine HCl (Vitamin B1 Tab) 100 mg PO DAILY [facility] Last Admin: 11/23/16 08:17 Dose: 100 mg - Labs Labs: 11/23/16 05:10 11/23/16 05:10 PT 12.2 SECONDS (9.6-11.2) H 11/20/16 05:50 INR 1.17 (0.92-1.08) H 11/20/16 05:50 APTT 43.9 SECONDS (23.3-32.5) H 11/20/16 05:50 - Constitutional Appears: Toxic - Head Exam Head Exam: ATRAUMATIC, NORMOCEPHALIC - Eye Exam Eye Exam: PERRL. absent: Scleral icterus - ENT Exam ENT Exam: Mucous Membranes Dry - Neck Exam Neck Exam: absent: Lymphadenopathy - Respiratory Exam Respiratory Exam: Decreased Breath Sounds, Rhonchi - Cardiovascular Exam Cardiovascular Exam: Tachycardia, REGULAR RHYTHM, +S1, +S2 - GI/Abdominal Exam GI & Abdominal Exam: Distended, Soft. absent: Guarding, Rigid, Tenderness - Rectal Exam Rectal Exam: Deferred - Exam Exam: NORMAL INSPECTION - Extremities Exam Extremities Exam: absent: Calf Tenderness, Pedal Edema - Back Exam Back Exam: absent: CVA tenderness (L), CVA tenderness (R) - Neurological Exam Neurological Exam: Altered - Psychiatric Exam Psychiatric exam: Depressed - Skin Skin Exam: Dry Assessment and Plan (1) Abdominal pain Status: Acute (2) Pneumonia Status: Acute (3) Respiratory failure Status: Acute (4) Respiratory failure with hypoxia and hypercapnia Status: Acute
[2016-11-23 14:14] LABS: BF GROSS APPEARANCE BLOODY (CLEAR)
[2016-11-23 14:18] LABS: LDH,BODY FLUID 12675 IU (NONE ESTABLISHED)
[2016-11-23 14:37] LABS: BODY FLUID TOTAL COUNT 100 (0-0)
[2016-11-23] MEDS: POLYETHYLENE GLYCOL 3350 17 GM/Dose PACKET PO SCH (15:18)
--- NOTE | 2016-11-23 15:46 | RAD ---
PROCEDURE: CHEST RADIOGRAPH, 1 VIEW HISTORY: s/p right chest tube insertion COMPARISON: Comparison is made to the previous same-day exam FINDINGS: LUNGS: Interval insertion of right chest C tube. Interval partial re-expansion of the right lower lobe. The ET tube is seen at appropriate position. Small patchy opacities in the lungs are again seen. Linear opacities at the left lung base likely atelectasis. PLEURA: Interval decrease in the size of the right pleural effusion since the previous exam. CARDIOVASCULAR: Normal. OSSEOUS STRUCTURES: No significant abnormalities. VISUALIZED UPPER ABDOMEN: NG tube seen extending to the abdomen. OTHER FINDINGS: None. IMPRESSION: Interval insertion of right-sided chest C tube with interval decrease in the size of the right pleural effusion and partial re-expansion of the right lower lobe.
[2016-11-23 17:01] LABS: C. PNEUMONIAE IGA <1:16 (<1:16); C. PNEUMONIAE IGG <1:64 (<1:64); C. PNEUMONIAE IGM <1:10 (<1:10); C. PSITTACI IGA <1:16 (<1:16); C. PSITTACI IGG <1:64 (<1:64); C. PSITTACI IGM <1:10 (<1:10); C. TRACHOMATIS IGA <1:16 (<1:16); C. TRACHOMATIS IGG <1:64 (<1:64); C. TRACHOMATIS IGM <1:10 (<1:10)
[2016-11-24] MEDS: Piperacillin/Tazobact 4.5 GM in Sodium Chloride 0.9% 100 ML IVPB SCH ×3 (02:36→13:00)
[2016-11-24 05:23] LABS: HEMATOCRIT 34.5 % (35.0-51.0); MEAN CELL VOLUME 94.4 fl (80.0-94.0); MEAN CORPUSCULAR HGB CONC 34.9 g/dL (33.0-37.0); RED CELL DISTRIBUTION WIDTH 14.4 % (11.5-14.5); WHITE BLOOD COUNT 23.4 K/uL (4.8-10.8)
[2016-11-24 05:31] LABS: TOTAL PROTEIN 5.5 G/DL (6.3-8.2)
[2016-11-24 05:39] LABS: ALB/GLOB RATIO 0.7 (1.0-2.1); ALKALINE PHOSPHATASE 95 U/L (38-126); ALT/SGPT 27 U/L (21-72); AST/SGOT 51 U/L (17-59); BILIRUBIN,TOTAL 0.3 mg/dl (0.2-1.3); BLOOD UREA NITROGEN 12 mg/dl (9-20); CALCIUM 6.9 mg/dL (8.4-10.2); CARBON DIOXIDE 29 mmol/L (22-30); CHLORIDE 103 mmol/L (98-107); GFR AFRICAN-AMERICAN > 60; GLUCOSE,RANDOM 106 mg/dL (75-110); POTASSIUM 3.2 MMOL/L (3.6-5.0); SODIUM 143 mmol/l (132-148)
[2016-11-24 06:05] LABS: ABG ALLEN TEST YES; ABG MECHANICAL RATE 12; ARTERIAL BLOOD GAS HCO3 32.6 mmol/L (21-28); ARTERIAL BLOOD GAS MODE A/C; ARTERIAL BLOOD GAS O2 CAPACITY 16.4 mL/dL (16-24); ARTERIAL BLOOD GAS O2 CONTENT 15.7 ML/dL (15-23); ARTERIAL BLOOD GAS PH 7.39 (7.35-7.45); ARTERIAL BLOOD GAS PO2 64 mm/Hg (80-100); ATERIAL BLOOD GAS PEEP 8; CARBOXYHEMOGLOBIN 1.6 % (0.5-1.5); METHEMOGLOBIN 1.4 % (0.0-3.0)
[2016-11-24] MEDS ORDERED: Potassium Chloride 20 mEq/15 ml LIQ UD GT ONE (06:53)
[2016-11-24] MEDS: Albuterol-Ipratrop 3 mg / 0.5 (3 ml) UD INH SCH ×4 (08:08→16:00)
--- NOTE | 2016-11-24 08:22 | PN ---
DATE: 11/23/2016 The patient is seen and examined. Interim events noted. Consults noted and appreciated. The patien t remains in intensive care unit on the ventilator, not able to provide informative history or review of systems. Case was discussed with the patient's family member. PHYSICAL EXAMINATION: GENERAL: The patient is orally intubated on mechanical ventilation via endotracheal tube, tolerating current vent setting without any acute distress. VITAL SIGNS: Stable. Temperature afebrile, pulse 98, respirations 18, blood pressure 120/80. HEART: S1, S2 normal, regular. LUNGS: Good bilateral air entry. ABDOMEN: Soft, ____. LUNGS: Show bilateral basal crepitations. CENTRAL NERVOUS SYSTEM: Essentially unchanged, and thorough EMBALMER APPRENTICE exam is not possible, as the patient is sedated and is on ventilator. DIAGNOSTIC DATA: Available diagnostic data reviewed. Telemetry monitoring shows sinus tachycardia, but no other significant acute arrhythmia. Overall, the patient's general medical condition seems to be improving. DIAGNOSTIC DATA: Available diagnostic data reviewed. ABGs are more acceptable. PLAN: As ordered. Rohan Hoffman MD cc: [id number] TT: 11/23/2016 08:41:59 Confirmation # [id number] Dictation # [id number] maddie
--- NOTE | 2016-11-24 08:42 | CP.PCM.PN ---
Subjective - Date & Time of Evaluation Date of Evaluation: 11/24/16 Time of Evaluation: 08:47 - Subjective Subjective: STILL SEDATED AND BEING VENTILATED AT BEDSIDE --ASKED LOTS OF QUESTIONS AND ANSWERS GIVEN BY DR THOMAS O2 SAT STABLE ON 40% FIO2 CHEST TUBES IN PLACE CXR REVIEWED Objective - Vital Signs/Intake and Output Vital Signs (last 24 hours): Temp Pulse Resp BP Pulse Ox 99.5 F 107 H 18 126/62 95 11/24/16 08:00 11/24/16 08:00 11/24/16 08:00 11/24/16 08:00 11/24/16 08:00 Intake and Output: 11/24/16 11/24/16 06:59 18:59 Intake Total 1860 Output Total 1225 Balance 635 - Medications Medications: Current Medications Acetaminophen (Tylenol 325mg Tab) 650 mg PO Q4 PRN PRN Reason: Pain, Mild (1-3) Acetaminophen (Tylenol 650mg/20.3ml Solution Ud) 650 mg PO Q4 PRN PRN Reason: Fever >100.4 F Last Admin: 11/23/16 23:11 Dose: 650 mg Albuterol/Ipratropium (Duoneb 3 Mg/0.5 Mg (3 Ml) Ud) 3 ml INH RQID [facility] Last Admin: 11/24/16 08:09 Dose: 3 ml Enoxaparin Sodium (Lovenox) 40 mg SC DAILY [facility] PRN Reason: Protocol Last Admin: 11/23/16 08:16 Dose: 40 mg Folic Acid (Folic Acid) 1 mg PO DAILY [facility] Last Admin: 11/23/16 08:17 Dose: 1 mg Levofloxacin/Dextrose (Levaquin 750mg) 150 mls @ 100 mls/hr IVPB DAILY [facility] Last Admin: 11/23/16 08:41 Dose: 100 mls/hr Fluconazole 100 mg/ (Miscellaneous) 50 mls @ 50 mls/hr IVPB DAILY [facility] Last Admin: 11/23/16 08:13 Dose: 50 mls/hr Propofol (Diprivan) 100 mls @ 18.098 mls/hr IV .Q5H32M [facility]; 47.5 MCG/KG/MIN PRN Reason: Protocol Last Admin: 11/24/16 06:50 Dose: 18.098 mls/hr Vancomycin HCl 1.25 gm/ Sodium (Chloride) 250 mls @ 125 mls/hr IVPB Q8H [facility] Last Admin: 11/24/16 04:02 Dose: 125 mls/hr Piperacillin Sod/Tazobactam (Sod 4.5 gm/ Sodium Chloride) 100 mls @ 100 mls/hr IVPB 0100,0700,1300,1900 [facility] Last Admin: 11/24/16 06:46 Dose: 100 mls/hr Morphine Sulfate (Morphine) 2 mg IVP Q4 PRN PRN Reason: Pain, moderate (4-7) Oseltamivir Phosphate (Tamiflu Cap) 75 mg PO BID [facility] Last Admin: 11/23/16 16:22 Dose: 75 mg Pantoprazole Sodium (Protonix Inj) 40 mg IVP DAILY [facility] Last Admin: 11/23/16 08:17 Dose: 40 mg Polyethylene Glycol (Miralax) 17 gm PO DAILY [facility] Last Admin: 11/23/16 15:18 Dose: Not Given Potassium Chloride (K-Dur 20 Meq Er Tab) 20 meq PO DAILY [facility] Thiamine HCl (Vitamin B1 Tab) 100 mg PO DAILY [facility] Last Admin: 11/23/16 08:17 Dose: 100 mg - Labs Labs: 11/24/16 04:35 11/24/16 04:35 PT 12.2 SECONDS (9.6-11.2) H 11/20/16 05:50 INR 1.17 (0.92-1.08) H 11/20/16 05:50 APTT 43.9 SECONDS (23.3-32.5) H 11/20/16 05:50 - Constitutional Appears: Chronically Ill - Head Exam Head Exam: ATRAUMATIC, NORMAL INSPECTION, NORMOCEPHALIC - Eye Exam Eye Exam: EOMI, Normal appearance, PERRL Pupil Exam: NORMAL ACCOMODATION, PERRL - ENT Exam ENT Exam: Mucous Membranes Moist, Normal Exam - Neck Exam Neck Exam: Full ROM, Normal Inspection. absent: Lymphadenopathy - Respiratory Exam Respiratory Exam: Rales Additional comments: INTUBATED AND BEING VENTILATED - Cardiovascular Exam Cardiovascular Exam: REGULAR RHYTHM, +S1, +S2. absent: Murmur - GI/Abdominal Exam GI & Abdominal Exam: Soft, Normal Bowel Sounds. absent: Tenderness - Rectal Exam Rectal Exam: NORMAL INSPECTION - Extremities Exam Extremities Exam: Full ROM, Normal Capillary Refill, Normal Inspection. absent : Joint Swelling, Pedal Edema - Back Exam Back Exam: NORMAL INSPECTION - Skin Skin Exam: Dry, Intact, Normal Color, Warm Assessment and Plan - Assessment and Plan (Free Text) Assessment: ACUTE RESPIRATORY FAILURE EXUDATIVE R PLEURAL EFFUSION PNEUMONIA--?ETHIOLOGY Plan: CONTINUE VENT CARE CONTINUE EMPERIC ANTIBIOTIC RX WILL ATTEMPT TO WEAN OFF VENT WHEN STABLE ?VATS IF ALL WORKUP IS NON-REVEALING AND NO CLINICAL IMPROVEMENT GUARDED PROGNOSIS ADDRESSED WITH
--- NOTE | 2016-11-24 08:44 | CP.PCM.PN ---
Subjective - Date & Time of Evaluation Date of Evaluation: 11/24/16 Time of Evaluation: 07:00 - Subjective Subjective: CT Surgery: Dr. Pascual Patient seen and examined this AM. Pt is sedated. Tmax: 100.9. On FiO2:40%, PEEP : 8, satting at 95%. Chest tube dressings changed, c/d/i. CT ouput: 210cc/12hrs , total 1060ccs. NAEO. CT incision site non-erythematous. Objective - Vital Signs/Intake and Output Vital Signs (last 24 hours): Temp Pulse Resp BP Pulse Ox 99.5 F 107 H 18 126/62 95 11/24/16 08:00 11/24/16 08:00 11/24/16 08:00 11/24/16 08:00 11/24/16 08:00 Intake and Output: 11/24/16 11/24/16 06:59 18:59 Intake Total 1860 Output Total 1225 Balance 635 - Medications Medications: Current Medications Acetaminophen (Tylenol 325mg Tab) 650 mg PO Q4 PRN PRN Reason: Pain, Mild (1-3) Acetaminophen (Tylenol 650mg/20.3ml Solution Ud) 650 mg PO Q4 PRN PRN Reason: Fever >100.4 F Last Admin: 11/23/16 23:11 Dose: 650 mg Albuterol/Ipratropium (Duoneb 3 Mg/0.5 Mg (3 Ml) Ud) 3 ml INH RQID [facility] Last Admin: 11/24/16 08:09 Dose: 3 ml Enoxaparin Sodium (Lovenox) 40 mg SC DAILY [facility] PRN Reason: Protocol Last Admin: 11/23/16 08:16 Dose: 40 mg Folic Acid (Folic Acid) 1 mg PO DAILY [facility] Last Admin: 11/23/16 08:17 Dose: 1 mg Levofloxacin/Dextrose (Levaquin 750mg) 150 mls @ 100 mls/hr IVPB DAILY [facility] Last Admin: 11/23/16 08:41 Dose: 100 mls/hr Fluconazole 100 mg/ (Miscellaneous) 50 mls @ 50 mls/hr IVPB DAILY [facility] Last Admin: 11/23/16 08:13 Dose: 50 mls/hr Propofol (Diprivan) 100 mls @ 18.098 mls/hr IV .Q5H32M [facility]; 47.5 MCG/KG/MIN PRN Reason: Protocol Last Admin: 11/24/16 06:50 Dose: 18.098 mls/hr Vancomycin HCl 1.25 gm/ Sodium (Chloride) 250 mls @ 125 mls/hr IVPB Q8H [facility] Last Admin: 11/24/16 04:02 Dose: 125 mls/hr Piperacillin Sod/Tazobactam (Sod 4.5 gm/ Sodium Chloride) 100 mls @ 100 mls/hr IVPB 0100,0700,1300,1900 [facility] Last Admin: 11/24/16 06:46 Dose: 100 mls/hr Morphine Sulfate (Morphine) 2 mg IVP Q4 PRN PRN Reason: Pain, moderate (4-7) Oseltamivir Phosphate (Tamiflu Cap) 75 mg PO BID [facility] Last Admin: 11/23/16 16:22 Dose: 75 mg Pantoprazole Sodium (Protonix Inj) 40 mg IVP DAILY [facility] Last Admin: 11/23/16 08:17 Dose: 40 mg Polyethylene Glycol (Miralax) 17 gm PO DAILY [facility] Last Admin: 11/23/16 15:18 Dose: Not Given Potassium Chloride (K-Dur 20 Meq Er Tab) 20 meq PO DAILY [facility] Thiamine HCl (Vitamin B1 Tab) 100 mg PO DAILY [facility] Last Admin: 11/23/16 08:17 Dose: 100 mg - Labs Labs: 11/24/16 04:35 11/24/16 04:35 PT 12.2 SECONDS (9.6-11.2) H 11/20/16 05:50 INR 1.17 (0.92-1.08) H 11/20/16 05:50 APTT 43.9 SECONDS (23.3-32.5) H 11/20/16 05:50 - Constitutional Appears: Other (intubated) - Head Exam Head Exam: NORMOCEPHALIC - ENT Exam ENT Exam: Mucous Membranes Moist - Cardiovascular Exam Cardiovascular Exam: Tachycardia - GI/Abdominal Exam GI & Abdominal Exam: Soft. absent: Distended, Firm, Guarding - Extremities Exam Extremities Exam: absent: Pedal Edema - Neurological Exam Neurological Exam: absent: Alert, Awake - Skin Skin Exam: Dry, Intact, Normal Color, Warm Assessment and Plan - Assessment and Plan (Free Text) Assessment: 35M w/ R pleural effusion -CXR reviewed -WBC trending up, concerning for possible esophageal perforation/abscess -Abx per ID - R pleural effusion, ?etiology -F/u pleural fluid cultures -Neck & Chest CT w/ IV contrast to r/o esophageal abscess -CT to suction, monitor output -Will d/w Dr. Pascual
[2016-11-24] MEDS ORDERED: Potassium Chloride 20 mEq ER Tab PO SCH (09:00)
[2016-11-24] MEDS: NS 100 MG IVPB SCH (09:48)
[2016-11-24] MEDS: PREMIXED IVPB SCH (09:48)
[2016-11-24] MEDS: FLUCONAZOLE IVPB SCH (09:48)
[2016-11-24] MEDS: Enoxaparin 40 mg Syringe SC SCH (09:53)
[2016-11-24] MEDS: POLYETHYLENE GLYCOL 3350 17 GM/Dose PACKET PO SCH (09:54)
--- NOTE | 2016-11-24 11:32 | RAD ---
PROCEDURE: CHEST RADIOGRAPH, 1 VIEW HISTORY: pt intubated COMPARISON: 11/23/2016 FINDINGS: The endotracheal tube terminates 3.2 cm proximal to the disha. The nasogastric tube terminates in the stomach. LUNGS: There is a moderate loculated right pleural effusion. There is right basilar atelectasis. There is a small left pleural effusion. PLEURA: No pneumothorax. There is loculated fluid in the horizontal fissure. CARDIOVASCULAR: Normal. OSSEOUS STRUCTURES: No significant abnormalities. VISUALIZED UPPER ABDOMEN: Normal. OTHER FINDINGS: None. IMPRESSION: No significant interval change in moderate locular right pleural effusion and small left pleural effusion. Bibasilar airspace disease cannot be excluded.
[2016-11-24] MEDS: Acetaminophen 650mg/20.3ml solution UD PO PRN (12:03)
--- NOTE | 2016-11-24 12:19 | CP.PCM.PCO ---
Physician Communication Note - Physician Communication Note Physician Communication Note: Viral & Bacterial culture of Nasal Toshia ordered under "Culture Nose"
--- NOTE | 2016-11-24 12:51 | CP.CCUPN ---
CCU Subjective - Physician Review Subjective (Free Text): VAPOR COATER PROGRESS NOTE Patient examined, interim events reviewed: Still sedated on Propofol, at RASS neg 2-3, tolerated brief SBT while sedated, breathing 19-20 on CPAP 8 PS 8, 40%. R chest tube remains and total drained additional 200ml overnight. Temp 100.9F to 102.3F, HR up to 120 sinus, 122/68 , 25, 96%SPO2. 24I/O's = 3335/3225ml ROS: as above, no other obtainable pertinent negs or positives on 10 system review. PMFSH: all nursing and historical notes reviewed, no new pertinent data relevant to current problems. No other distress noted: EXAM- HEENT: no icterus, pupils equal and reactive, OGT in place. NECK: no visible JVD, supple, carotids equal upstroke bilat/no bruits CHEST: decreased BS bases, no wheezes audible HEART: regular, distant, S1S2, no murmur audible, no rubs. ABD: soft, no increased distention, no focal tenderness, no HSM. BS hypoactive , EXT: no leg edema, no peripheral/ digital cyanosis, no calf tenderness or palpable cords, distal pulses intact and symmetrical NEURO: no gross focal motor deficits, + tone SKIN: no rashes LABS: 7.39/61/64 WBC= 23.4 HGB= 12.1 PLTs= 190K Na= 143 K= 3.2 HCO3= 29 BUN/Cr= 12/0.5 BS= 106 CXR: ETT position OK above disha, improved aeration noted bilaterally, small R effusion persists over R horiz fissure area (my Interp). Assessment: 1. Acute Hypoxemic Resp failure 2' bilat Pneumonia 2. Ileus on admission 3. Chronic Alcoholism PLAN: 1. Day #4 MV support, decreased and tolerating Fio2 to 40%, will allow some hypercapnia. 2. CT Chest with IV contrast as per Thor Surg to look for occult abscess or collection from concern over possible spontaneous esophageal tear. He did present with epigastric abdominal discomfort. Will need GI re-eval over this new concern given no resolution or improvement in WBc and persistent low grade temps. 3. Check repeat Vanco trough levels, on empiric Zosyn, Vanco, Diflucan, Tamiflu and Levaquin noted. 4. PRN Lasix to keep fluid balance slightly negative, K supplemented. 5. Discussed present status with and [id number].
[2016-11-24] MEDS ORDERED: Iohexol 240 (50 ml) PO STA (13:43)
--- NOTE | 2016-11-24 14:16 | CP.PCM.PN ---
Subjective - Date & Time of Evaluation Date of Evaluation: 11/24/16 Time of Evaluation: 13:00 - Subjective Subjective: Patient seen at bedside with father in law, parents and at bedside. He is in contact and respiratory isolation. He is still intubated day 5 with uptrending leukocytosis and multi focal bilateral PNA with right sided pleural effusion which is transudative and placement of chest tube. All his blood cultures till date are negative with indeterminate quantiferon. He has persistent uptrending leukocytosis with fever inspite being on anti bacterial. He had no nucal rigidity on my exam or heart murmurs. GI consulted to rule out esophageal source of infection as his presenting complain was diaphragmatic pain. Objective - Vital Signs/Intake and Output Vital Signs (last 24 hours): Temp Pulse Resp BP Pulse Ox 102.3 F H 120 H 25 H 122/68 96 11/24/16 12:03 11/24/16 12:03 11/24/16 12:03 11/24/16 12:03 11/24/16 12:03 Intake and Output: 11/24/16 11/24/16 06:59 18:59 Intake Total 1860 Output Total 1225 Balance 635 - Medications Medications: Current Medications Acetaminophen (Tylenol 325mg Tab) 650 mg PO Q4 PRN PRN Reason: Pain, Mild (1-3) Acetaminophen (Tylenol 650mg/20.3ml Solution Ud) 650 mg PO Q4 PRN PRN Reason: Fever >100.4 F Last Admin: 11/24/16 12:03 Dose: 650 mg Albuterol/Ipratropium (Duoneb 3 Mg/0.5 Mg (3 Ml) Ud) 3 ml INH RQID [facility] Last Admin: 11/24/16 11:24 Dose: 3 ml Enoxaparin Sodium (Lovenox) 40 mg SC DAILY [facility] PRN Reason: Protocol Last Admin: 11/24/16 09:53 Dose: 40 mg Folic Acid (Folic Acid) 1 mg PO DAILY [facility] Last Admin: 11/24/16 09:55 Dose: 1 mg Levofloxacin/Dextrose (Levaquin 750mg) 150 mls @ 100 mls/hr IVPB DAILY [facility] Last Admin: 11/24/16 10:00 Dose: 100 mls/hr Fluconazole 100 mg/ (Miscellaneous) 50 mls @ 50 mls/hr IVPB DAILY [facility] Last Admin: 11/24/16 09:48 Dose: 50 mls/hr Propofol (Diprivan) 100 mls @ 18.098 mls/hr IV .Q5H32M [facility]; 47.5 MCG/KG/MIN PRN Reason: Protocol Last Admin: 11/24/16 12:01 Dose: 18.098 mls/hr Vancomycin HCl 1.25 gm/ Sodium (Chloride) 250 mls @ 125 mls/hr IVPB Q8H [facility] Last Admin: 11/24/16 12:05 Dose: 125 mls/hr Piperacillin Sod/Tazobactam (Sod 4.5 gm/ Sodium Chloride) 100 mls @ 100 mls/hr IVPB 0100,0700,1300,1900 [facility] Last Admin: 11/24/16 06:46 Dose: 100 mls/hr Morphine Sulfate (Morphine) 2 mg IVP Q4 PRN PRN Reason: Pain, moderate (4-7) Oseltamivir Phosphate (Tamiflu Cap) 75 mg PO BID [facility] Last Admin: 11/24/16 09:54 Dose: 75 mg Pantoprazole Sodium (Protonix Inj) 40 mg IVP DAILY [facility] Last Admin: 11/24/16 09:54 Dose: 40 mg Polyethylene Glycol (Miralax) 17 gm PO DAILY [facility] Last Admin: 11/24/16 09:54 Dose: 17 gm Potassium Chloride (K-Dur 20 Meq Er Tab) 20 meq PO DAILY [facility] Last Admin: 11/24/16 09:51 Dose: 20 meq Thiamine HCl (Vitamin B1 Tab) 100 mg PO DAILY [facility] Last Admin: 11/24/16 09:54 Dose: 100 mg - Labs Labs: 11/24/16 04:35 11/24/16 04:35 PT 12.2 SECONDS (9.6-11.2) H 11/20/16 05:50 INR 1.17 (0.92-1.08) H 11/20/16 05:50 APTT 43.9 SECONDS (23.3-32.5) H 11/20/16 05:50 - Head Exam Additional comments: Intubated, sedated NGT + Corase breath sounds Dilated pupils Anicteric sclera Warm to touch No trach soares on body RRR. S1 S2 normal Abdomen soft. Bowel sounds present. No guarding or tenderness. No fluid thrill. No rigidity LE- on compression device Assessment and Plan - Assessment and Plan (Free Text) Assessment: 35 yr old male admitted with diaphragmatic pain found to have multi lobar multi focal pneumonia with right sided pleural effusion s/p chest tube. He is still intubated day 5 with uptrending leukocytosis. His pleural effusion which is transudative had normal amylase levels (high levels seen in esophageal rupture, malignancy, pancreatitis). All his blood cultures till date are negative with indeterminate quantiferon. He had no nucal rigidity on my exam or heart murmurs. GI consulted to rule out esophageal source of infection as his presenting complain was diaphragmatic pain. His initial Ct abdomen non contrast showed normal bowels and upper Gi tract. I would also consider cardiac vegetations or fungal infections. Perhaps doing a MRI brain will also help to rule out neurological infection. as per he wa susctioning out mucus from his 8 week old baby who was sick with URI. His last travel to [place] was in May and then to [place] in Jul. He had no complains oprior to this hospitalization except for fatigue, malaise and upper respiratory symptoms which was attributed to flu as per family Plan: - Please send fungal cultures, get IV contrast enhanced neck, chest and abdomen CT - Consider brain MRI - If there is indeed esophageal tear or abscess - doing luminal exam is contraindicated due to risk of perforation - Send viral serologies - send stool infectious work up - Will follow after abdominal contrast enhanced imaging
--- NOTE | 2016-11-24 14:47 | CP.PCM.PN ---
Subjective - Date & Time of Evaluation Date of Evaluation: 11/24/16 Time of Evaluation: 14:44 - Subjective Subjective: Remains intubated on vetilator. Tmax-102 wbc-23k. chest tube-230cc/y. Pig tail-15cc/y. cxr-loculated fluid in the horizontal fissure. ct of chest and abd and pelvis pending. a/p: Clinical course unchanged. Rx plan after ct this pm. Objective - Vital Signs/Intake and Output Vital Signs (last 24 hours): Temp Pulse Resp BP Pulse Ox 102.3 F H 120 H 25 H 122/68 96 11/24/16 12:03 11/24/16 12:03 11/24/16 12:03 11/24/16 12:03 11/24/16 12:03 Intake and Output: 11/24/16 11/24/16 06:59 18:59 Intake Total 1860 Output Total 1225 Balance 635 - Medications Medications: Current Medications Acetaminophen (Tylenol 325mg Tab) 650 mg PO Q4 PRN PRN Reason: Pain, Mild (1-3) Acetaminophen (Tylenol 650mg/20.3ml Solution Ud) 650 mg PO Q4 PRN PRN Reason: Fever >100.4 F Last Admin: 11/24/16 12:03 Dose: 650 mg Albuterol/Ipratropium (Duoneb 3 Mg/0.5 Mg (3 Ml) Ud) 3 ml INH RQID [facility] Last Admin: 11/24/16 11:24 Dose: 3 ml Enoxaparin Sodium (Lovenox) 40 mg SC DAILY [facility] PRN Reason: Protocol Last Admin: 11/24/16 09:53 Dose: 40 mg Folic Acid (Folic Acid) 1 mg PO DAILY [facility] Last Admin: 11/24/16 09:55 Dose: 1 mg Levofloxacin/Dextrose (Levaquin 750mg) 150 mls @ 100 mls/hr IVPB DAILY [facility] Last Admin: 11/24/16 10:00 Dose: 100 mls/hr Fluconazole 100 mg/ (Miscellaneous) 50 mls @ 50 mls/hr IVPB DAILY [facility] Last Admin: 11/24/16 09:48 Dose: 50 mls/hr Propofol (Diprivan) 100 mls @ 18.098 mls/hr IV .Q5H32M [facility]; 47.5 MCG/KG/MIN PRN Reason: Protocol Last Admin: 11/24/16 12:01 Dose: 18.098 mls/hr Vancomycin HCl 1.25 gm/ Sodium (Chloride) 250 mls @ 125 mls/hr IVPB Q8H [facility] Last Admin: 11/24/16 12:05 Dose: 125 mls/hr Piperacillin Sod/Tazobactam (Sod 4.5 gm/ Sodium Chloride) 100 mls @ 100 mls/hr IVPB 0100,0700,1300,1900 [facility] Last Admin: 11/24/16 06:46 Dose: 100 mls/hr Morphine Sulfate (Morphine) 2 mg IVP Q4 PRN PRN Reason: Pain, moderate (4-7) Oseltamivir Phosphate (Tamiflu Cap) 75 mg PO BID [facility] Last Admin: 11/24/16 09:54 Dose: 75 mg Pantoprazole Sodium (Protonix Inj) 40 mg IVP DAILY [facility] Last Admin: 11/24/16 09:54 Dose: 40 mg Polyethylene Glycol (Miralax) 17 gm PO DAILY [facility] Last Admin: 11/24/16 09:54 Dose: 17 gm Potassium Chloride (K-Dur 20 Meq Er Tab) 20 meq PO DAILY [facility] Last Admin: 11/24/16 09:51 Dose: 20 meq Thiamine HCl (Vitamin B1 Tab) 100 mg PO DAILY [facility] Last Admin: 11/24/16 09:54 Dose: 100 mg - Labs Labs: 11/24/16 04:35 11/24/16 04:35 PT 12.2 SECONDS (9.6-11.2) H 11/20/16 05:50 INR 1.17 (0.92-1.08) H 11/20/16 05:50 APTT 43.9 SECONDS (23.3-32.5) H 11/20/16 05:50
[2016-11-24] MEDS ORDERED: Iohexol 300 100 ML IJ ONE (16:32)
[2016-11-24] MEDS ORDERED: Sodium Chloride 0.9% 50 ML IV ONE (16:32)
--- NOTE | 2016-11-24 17:12 | CP.CCUPN ---
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 Of note, is unexpected rapid deterioration as seen in chest films manifest by rapid accumulation of primary R sided effusion over a 2 day period when films from admission on 11/18/16 compared to chest film done on 11/20/16. He also presented with epigastric abdominal pain and ileus pattern. Today, fevers persist and WBC continues to slowly increase despite new chest tube thoracostomy drainage and improvement in CXR picture. Dr. Pascual feels that this is a case of occult esophageal perforation and will need further localizing CT scans to look for an abcess, then definitive surgical management which may include esophagoscopy, esophageal stenting and ultimate esophageal repair which he feels cannot be accomplished at [facility]. Recommendations made to consider early transfer to [facility] or [facility] before patient deteriorates further. He is stable for transfer to tertiary center. Calls made to [facility] first and they have accepted him onto their Thoracic Surgery service under Dr. Iona Nicholson. Discussed with . Await ICU bed availability. Repeat CTs of Chest and Abdomen with IV and Bowel contrast done with results pending.
--- NOTE | 2016-11-24 17:50 | CP.PCM.PN ---
Subjective - Date & Time of Evaluation Date of Evaluation: 11/24/16 Time of Evaluation: 09:00 - Subjective Subjective: events noted for transfer to [facility] - await ICU bed all cultures neg cont vanco/ levofloxacin/ zosyn/ mycamine Objective - Vital Signs/Intake and Output Vital Signs (last 24 hours): Temp Pulse Resp BP Pulse Ox 102 F H 120 H 25 H 122/68 96 11/24/16 16:00 11/24/16 12:03 11/24/16 12:03 11/24/16 12:03 11/24/16 12:03 Intake and Output: 11/24/16 11/24/16 06:59 18:59 Intake Total 1860 Output Total 1225 Balance 635 - Medications Medications: Current Medications Acetaminophen (Tylenol 325mg Tab) 650 mg PO Q4 PRN PRN Reason: Pain, Mild (1-3) Acetaminophen (Tylenol 650mg/20.3ml Solution Ud) 650 mg PO Q4 PRN PRN Reason: Fever >100.4 F Last Admin: 11/24/16 12:03 Dose: 650 mg Albuterol/Ipratropium (Duoneb 3 Mg/0.5 Mg (3 Ml) Ud) 3 ml INH RQID [facility] Last Admin: 11/24/16 11:24 Dose: 3 ml Folic Acid (Folic Acid) 1 mg PO DAILY [facility] Last Admin: 11/24/16 09:55 Dose: 1 mg Levofloxacin/Dextrose (Levaquin 750mg) 150 mls @ 100 mls/hr IVPB DAILY [facility] Last Admin: 11/24/16 10:00 Dose: 100 mls/hr Propofol (Diprivan) 100 mls @ 18.098 mls/hr IV .Q5H32M [facility]; 47.5 MCG/KG/MIN PRN Reason: Protocol Last Admin: 11/24/16 12:01 Dose: 18.098 mls/hr Vancomycin HCl 1.25 gm/ Sodium (Chloride) 250 mls @ 125 mls/hr IVPB Q8H [facility] Last Admin: 11/24/16 12:05 Dose: 125 mls/hr Piperacillin Sod/Tazobactam (Sod 4.5 gm/ Sodium Chloride) 100 mls @ 100 mls/hr IVPB 0100,0700,1300,1900 [facility] Last Admin: 11/24/16 06:46 Dose: 100 mls/hr Micafungin Sodium 100 mg/ (Sodium Chloride) 100 mls @ 100 mls/hr IV DAILY [facility] Stop: 11/24/16 18:59 Morphine Sulfate (Morphine) 2 mg IVP Q4 PRN PRN Reason: Pain, moderate (4-7) Oseltamivir Phosphate (Tamiflu Cap) 75 mg PO BID [facility] Last Admin: 11/24/16 09:54 Dose: 75 mg Pantoprazole Sodium (Protonix Inj) 40 mg IVP DAILY [facility] Last Admin: 11/24/16 09:54 Dose: 40 mg Polyethylene Glycol (Miralax) 17 gm PO DAILY [facility] Last Admin: 11/24/16 09:54 Dose: 17 gm Potassium Chloride (K-Dur 20 Meq Er Tab) 20 meq PO DAILY [facility] Last Admin: 11/24/16 09:51 Dose: 20 meq Thiamine HCl (Vitamin B1 Tab) 100 mg PO DAILY [facility] Last Admin: 11/24/16 09:54 Dose: 100 mg - Labs Labs: 11/24/16 04:35 11/24/16 04:35 PT 12.2 SECONDS (9.6-11.2) H 11/20/16 05:50 INR 1.17 (0.92-1.08) H 11/20/16 05:50 APTT 43.9 SECONDS (23.3-32.5) H 11/20/16 05:50 Assessment and Plan (1) Abdominal pain Status: Acute (2) Pneumonia Status: Acute (3) Respiratory failure Status: Acute (4) Respiratory failure with hypoxia and hypercapnia Status: Acute
--- NOTE | 2016-11-24 17:52 | CT ---
PROCEDURE: CT Neck, Chest, Abdomen and Pelvis with contrast HISTORY: r/o esophageal abscess COMPARISON: None. TECHNIQUE: Contrast dose: 100 cc of Omni 300 Radiation dose: Total exam DLP = 1738 mGy-cm. FINDINGS: CT OF THE NECK: PHARYNX: Nasopharynx: Unremarkable. Oropharnx: Unremarkable. Hypopharynx: Unremarkable. LYMPH NODES: Unremarkable. VASCULATURE: Unremarkable. GLANDS: Unremarkable. CERVICAL SPINE: Unremarkable. CT OF THE CHEST: LUNGS: There is dense consolidation at the right lung base and a small amount of consolidation at the left lung base. There is a small to moderate right effusion and a right-sided chest tube. There is a small pneumothorax MEDIASTINUM: Unremarkable thoracic aorta. No aneurysm or dissection. Normal sized heart. Pulmonary arterial truck unremarkable. No vascular congestion. No lymphadenopathy. PLEURA: No pleural fluid. No pneumothorax. BONES: No fracture. No destructive lesion. CT OF THE ABDOMEN AND PELVIS: LIVER: Unremarkable. No mass lesion or ductal dilatation. GALLBLADDER AND BILE DUCTS: Unremarkable. PANCREAS: Unremarkable. No mass or ductal dilatation. SPLEEN: Unremarkable. No splenomegaly. ADRENALS: Unremarkable. KIDNEYS AND URETERS: Unremarkable. No hydronephrosis or hydroureter. No solid mass lesion. BLADDER: Unremarkable. No mass. REPRODUCTIVE: Unremarkable. APPENDIX: Normal appendix. STOMACH AND BOWEL: Unremarkable. No obstruction. No mural thickening. There is a nasogastric tube in the distal stomach PERITONEUM: Unremarkable. No free fluid. No free air. LYMPH NODES: Unremarkable. No enlarged lymph nodes. VASCULATURE: Unremarkable. No aortic aneurysm. BONES: No fracture or focal lesion. OTHER FINDINGS: None. IMPRESSION: Right-sided chest tube. Small to moderate right-sided effusion. Bibasilar consolidation. Nasogastric tube in place. No evidence of esophageal abscess
[2016-11-24] MEDS ORDERED: Micafungin 100 MG in Sodium Chloride 0.9% 100 ML IV SCH (18:00)
[2016-11-24 19:33] VITALS: TEMP 101.9
[2016-11-24 19:34] VITALS: BP 126/60; PULSE 101; RESP 19; O2SAT 95
--- NOTE | 2016-11-25 08:35 | PN ---
DATE: 11/24/2016 The patient seen and examined. Interim events noted. Consults noted, appreciated. The patient brianda ins in intensive care unit. The patient has some drainage present. The patient remains on the venti lator, not able to provide informative history or review of system. PHYSICAL EXAMINATION: GENERAL: The patient is in intensive care unit on mechanical ventilation via endotracheal tube, tole rating current vent setting without any acute respiratory distress. The patient is also sedated. VITAL SIGNS: Stable, temperature afebrile, pulse 103, respiration 20, blood pressure 110/70. HEART EXAMINATION: S1, S2 tachycardic. LUNGS: Good bilateral air exchange. ABDOMEN: Soft, nontender. EXTREMITY EXAMINATION: No calf swelling, no tenderness, no acute ischemia. CENTRAL NERVOUS SYSTEM EXAMINATION: Essentially unchanged. LUNG EXAMINATION: Shows bilateral low posterior tations. DIAGNOSTIC DATA: Available diagnostic data reviewed. Telemetry monitoring reveals sinus tachycardia with no other significant arrhythmia. Overall, the patient remains critically sick, but slightly improved. The patient had a new chest tub e placed yesterday. PLAN: As ordered. Case and plan discussed with the patient's at bedside at length. The case a nd plan also discussed with the ventilation mechanic. Rohan Hoffman MD cc: [id number] TT: 11/24/2016 09:01:24 Confirmation # [id number] Dictation # [id number] maddie
[2016-11-25 14:14] LABS: CYTOMEGALOVIRUS AB (IGG) 1.67 (<0.91)
[2016-11-25 21:24] LABS: CYTOMEGALOVIRUS AB (IGM) <0.2 AI (< OR = 0.8)
[2016-11-30 20:19] LABS: COXSACKIE A10 AB <1:8 (()); COXSACKIE A16 AB <1:8 (()); COXSACKIE A2 AB <1:8 (()); COXSACKIE A7 AB <1:8 (()); COXSACKIE A9 AB <1:8 (()); COXSACKIE B1 <1:8 (()); COXSACKIE B2 <1:8 (()); COXSACKIE B3 <1:8 (()); COXSACKIE B4 <1:8 (())
== END 2016-11-24 18:45 | disposition short-term general hospital (02) | DRG 871 ==
LOC: H.ER 14:09 → H.ERHOLD 17:48 → H.ICU/CCU 21:50
PROVIDERS: ADMIT Internal Medicine; ATTEND Internal Medicine
PROC: 0W9930Z Drainage of Right Pleural Cavity with Drainage Device, Percutaneous Approach (ICD-10-PCS; principal; 2016-11-21)
PROC: 5A1945Z Respiratory Ventilation, 24-96 Consecutive Hours (ICD-10-PCS; 2016-11-21)
PROC: 0BH17EZ Insertion of Endotracheal Airway into Trachea, Via Natural or Artificial Opening (ICD-10-PCS; 2016-11-21)
DX: A41.9 Sepsis, unspecified organism (principal); J69.0 Pneumonitis due to inhalation of food and vomit; J96.01 Acute respiratory failure with hypoxia; J96.02 Acute respiratory failure with hypercapnia; K22.3 Perforation of esophagus; J91.8 Pleural effusion in other conditions classified elsewhere; K56.0 Paralytic ileus; F10.20 Alcohol dependence, uncomplicated; Y90.9 Presence of alcohol in blood, level not specified; R65.20 Severe sepsis without septic shock; K59.00 Constipation, unspecified; K76.0 Fatty (change of) liver, not elsewhere classified